=== PATIENT | female | born 1965 | race Caucasian/White ===

== ENCOUNTER 2017-09-12 00:35 | Emergency (ER) | payer OTHER ==
[~2017-09-12] VITALS: Ht 167.6 cm; Wt 144.7 kg
[~2017-09-12 00:35] MED LIST: BUPR100T8 PO; CLON1TAB3 PO; DICL-201 PO; GLIP10TA3 PO; LISI-461 PO; LPT40 PO; METF-384 PO; NYST100098 TOP; OMEP40CA36 PO; PARO1TAB27 PO; QUET150T PO
[2017-09-12 00:59] VITALS: TEMP 36.8; Ht 167.6 cm; Wt 144.7 kg
[2017-09-12 01:20] VITALS: O2SAT 98
[2017-09-12 01:33] LABS: BASO % 0.3 %; BASO ABS # 0.03 K/uL (0-0.2); EOS % 0.5 %; EOS ABS # 0.06 K/uL (0-0.5); HEMATOCRIT 40.3 % (37-47); HEMOGLOBIN 13.9 g/dL (12.0-16.0); IG# 0.03 K/uL (0.00-0.02); LYMPH % 27.9 %; LYMPH ABS # 3.18 K/uL (1.2-3.4); MEAN CELL VOLUME 86.1 fL (80-100); MEAN CORPUSCULAR HEMOGLOBIN 29.7 pg (25-34); MEAN CORPUSCULAR HGB CONC 34.5 g/dl (32-36); MEAN PLATELET VOLUME 10.4 fL (7.4-10.4); MONO % 5.3 %; NEUT % 65.7 %; NEUT ABS # 7.51 K/uL (1.4-6.5); PLATELET COUNT 290 K/uL (130-400); RED CELL DISTRIBUTION WIDTH CV 14.5 % (11.5-14.5); WHITE BLOOD COUNT 11.41 K/uL (4.8-10.8)
[2017-09-12] MEDS ORDERED: OMEP40CA41 PO (01:49)
[2017-09-12] MEDS ORDERED: QUET1TAB10 PO (01:51)
[2017-09-12 01:54] LABS: BLOOD UREA NITROGEN 13 mg/dl (7-18); CREATININE 1.12 mg/dl (0.60-1.20); GLUCOSE 202 mg/dl (70-99)
[2017-09-12] MEDS ORDERED: ATR25 PO (01:54)
[2017-09-12 01:55] LABS: ALBUMIN 3.8 gm/dl (3.4-5.0); ALT/SGPT 27 U/L (12-78); AST/SGOT 17 U/L (15-37); CALCIUM 9.2 mg/dl (8.5-10.1); CARBON DIOXIDE 28 mmol/L (21-32); POTASSIUM 3.4 mmol/L (3.5-5.1); SODIUM 136 mmol/L (136-145)
[2017-09-12 01:57] LABS: ALKALINE PHOSPHATASE 116 U/L (45-117); TOTAL PROTEIN 8.1 gm/dl (6.4-8.2)
[2017-09-12] MEDS ORDERED: ACETAMINOPHEN 500 MG TAB PO STA (02:24)
[2017-09-12 02:30] VITALS: BP 133/69; PULSE 93; O2SAT 94
--- NOTE | 2017-09-12 05:00 | EMERGENCY ROOM VISIT NOTE ---
History First contact with patient: 01:02 Chief Complaint: CARBON MONOXIDE EXPOSURE Stated Complaint: CO2 CHECK History of Present Illness The patient is a 52 year old female who presents to the Emergency Room with complaints of headache, lightheadedness and slight blurred vision for the past hour who had current monoxide leak at the house. Patient has a coal stove. The detector went off. Far department came and they're advised not to stay in the house until cleared. Patient states that she will be staying with her mother. Patient denies chest pain, dyspnea, nausea, vomiting, abdominal pain, weakness. Review of Systems See HPI for pertinent positives & negatives. A total of 10 systems reviewed and were otherwise negative. Past Medical/Surgical History Medical Problems: (1) Anxiety (2) Bipolar 1 disorder (3) Depression (4) DM2 (diabetes mellitus, type 2) (5) Morbid obesity with BMI of 50.0-59.9, adult (6) Tobacco abuse Surgical Problems: (1) H/O dilation and curettage (2) H/O esophagogastroduodenoscopy (3) History of carpal tunnel surgery (4) S/P cholecystectomy Family History FH: cancer FHx: heart disease Hypertension Social History Smoking Status: Current Every Day Smoker Drug Use: none Marital Status: Housing Status: lives with family Occupation Status: unemployed Current/Historical Medications Scheduled Atorvastatin (Lipitor), 40 MG PO QAM Bupropion (Wellbutrin Sr), 100 MG PO QAM Glipizide (Glucotrol), 10 MG PO BID Lisinopril (Zestril), 10 MG PO QAM Metformin Hcl (Glucophage), 1,000 MG PO BID Omeprazole (Prilosec), 40 MG PO DAILY Paroxetine (Paxil), 60 MG PO HS Quetiapine Fumarate (Seroquel), 200 MG PO HS Scheduled PRN Clonazepam (Klonopin), 0.5 MG PO DAILY PRN for Anxiety Hydroxyzine HCl (Hydroxyzine HCl), 25 MG PO BID PRN for Anxiety Nystatin (Mycostatin), 1 APPLN TOP BID PRN for RASH Physical Exam Vital Signs Date Time Temp Pulse Resp B/P (MAP) Pulse Ox O2 Delivery O2 Flow Rate FiO2 09/12/17 02:30 93 16 133/69 94 09/12/17 01:20 98 Nasal Cannula 2.0 09/12/17 00:59 36.8 97 22 147/89 96 Room Air 09/12/17 00:59 96 Room Air Physical Exam VITALS: Vitals are noted on the nurse's note and reviewed by myself. Vital signs stable. GENERAL: Pleasant female in no acute distress, nondiaphoretic, well-developed well-nourished. SKIN: The skin was without rashes, erythema, edema, or bruising. There is no tenting of the skin. Capillary reflex less than 2 seconds. HEAD: Normocephalic atraumatic. EARS: External auditory canals clear, tympanic membranes pearly smith without erythema or effusion bilaterally. EYES: Pupils equal round and reactive to light and accommodation. Conjunctivae without injection, sclerae without icterus. Extraocular movements intact. NOSE: Patent, turbinates without inflammation or discharge. MOUTH: Mucous membranes moist. Pharynx without erythema or exudate. Uvula midline. Airway patent. Tongue does not deviate. NECK: Supple without nuchal rigidity. No lymphadenopathy. No thyromegaly. Cervical spine is nontender. No JVD. HEART: Regular rate and rhythm without murmurs gallops or rubs. LUNGS: Clear to auscultation bilaterally without wheezes, rales or rhonchi. No dullness to percussion. No retractions or accessory muscle use. ABDOMEN: Positive bowel sounds x 4. Normal tympanic percussion. Soft, nontender, without masses or organomegaly. Angel sign negative. No guarding or rebound tenderness. MUSCULOSKELETAL: No muscle atrophy, erythema, or edema noted. NEURO: Patient was alert and oriented to person place and time. Normal sensation to light and sharp touch. No focal neurological deficits. Medical Decision & Procedures Laboratory Results 09/12/17 01:25 Red Blood Count 4.68, Mean Corpuscular Volume 86.1, Mean Corpuscular Hemoglobin 29.7, Mean Corpuscular Hemoglobin Concent 34.5, Mean Platelet Volume 10.4, Neutrophils (%) (Auto) 65.7, Lymphocytes (%) (Auto) 27.9, Monocytes (%) (Auto) 5.3, Eosinophils (%) (Auto) 0.5, Basophils (%) (Auto) 0.3, Neutrophils # (Auto) 7.51, Lymphocytes # (Auto) 3.18, Monocytes # (Auto) 0.60, Eosinophils # (Auto) 0.06, Basophils # (Auto) 0.03 09/12/17 01:25 Test 09/12/17 01:25 White Blood Count 11.41 K/uL (4.8-10.8) Red Blood Count 4.68 M/uL (4.2-5.4) Hemoglobin 13.9 g/dL (12.0-16.0) Hematocrit 40.3 % (37-47) Mean Corpuscular Volume 86.1 fL (80-100) Mean Corpuscular Hemoglobin 29.7 pg (25-34) Mean Corpuscular Hemoglobin Concent 34.5 g/dl (32-36) Platelet Count 290 K/uL (130-400) Mean Platelet Volume 10.4 fL (7.4-10.4) Neutrophils (%) (Auto) 65.7 % Lymphocytes (%) (Auto) 27.9 % Monocytes (%) (Auto) 5.3 % Eosinophils (%) (Auto) 0.5 % Basophils (%) (Auto) 0.3 % Neutrophils # (Auto) 7.51 K/uL (1.4-6.5) Lymphocytes # (Auto) 3.18 K/uL (1.2-3.4) Monocytes # (Auto) 0.60 K/uL (0.11-0.59) Eosinophils # (Auto) 0.06 K/uL (0-0.5) Basophils # (Auto) 0.03 K/uL (0-0.2) RDW Standard Deviation 45.0 fL (36.4-46.3) RDW Coefficient of Variation 14.5 % (11.5-14.5) Immature Granulocyte % (Auto) 0.3 % Immature Granulocyte # (Auto) 0.03 K/uL (0.00-0.02) Carboxyhemoglobin 2.8 % THgb Anion Gap 7.0 mmol/L (3-11) Est Creatinine Clear Calc Drug Dose 86.7 ml/min Estimated GFR () 65.4 Estimated GFR (Non- 56.4 BUN/Creatinine Ratio 11.5 (10-20) Calcium Level 9.2 mg/dl (8.5-10.1) Total Bilirubin 0.2 mg/dl (0.2-1) Direct Bilirubin < 0.1 mg/dl (0-0.2) Aspartate Amino Transf (AST/SGOT) 17 U/L (15-37) Alanine Aminotransferase (ALT/SGPT) 27 U/L (12-78) Alkaline Phosphatase 116 U/L (45-117) Total Protein 8.1 gm/dl (6.4-8.2) Albumin 3.8 gm/dl (3.4-5.0) ED Course Prior records reviewed and summarized as above. Triage Nursing notes reviewed. Additional history obtained from family. The patient's history was concerning for carbon monoxide exposure who is having a headache and lightheadedness. Differential diagnosis: Etiologies such as cardiac monoxide poisoning, electrolyte abnormality, cardiac , glucose abnormality, infection, as well as others were entertained.. Physical examination: As above ER treatment provided: Oxygen On reassessment the patient felt better. Diagnostics interpreted by me: The labs revealed hyperglycemia without DKA. Negative carboxy hemoglobin This appears to be carboxy hemoglobin exposure that was nontoxic. Patient felt much better after being medicated as above. Patient was advised to monitor blood pressure and blood sugar. Patient was advised not to return home until cleared by the fire department. Patient was advised to follow-up family care in a few days or here in the ER sooner for headache, fevers, vomiting, chest pain, worsening signs or symptoms or as needed. Patient was neurovascularly and neurologically intact. Patient was well-appearing. By the evaluation outlined above emergent etiologies such as carbon monoxide poisoning, DKA, as well as others were deemed relatively unlikely. The pt informed about the findings as listed above. All questions were answered and pleased with the treatment. Return instructions were outlined and the patient was discharged in stable condition. Referral: The patient was referred back to primary care physician for follow-up in 2 to 3 days for a recheck of the current condition. Medical Decision As above Medication Reconcilliation Current Medication List: was personally reviewed by me Blood Pressure Screening Patient's blood pressure: Normal blood pressure Impression Primary Impression: Headache Additional Impressions: Diabetes mellitus with hyperglycemia Exposure to carbon monoxide Departure Information Dispostion Home / Self-Care Condition GOOD Forms HOME CARE DOCUMENTATION FORM, IMPORTANT VISIT INFORMATION Patient Instructions Poisoning Carbon Monoxide, [employer] Additional Instructions Do not return to your house until cleared by the fire department. Monitor your blood sugars. Ibuprofen(Motrin, Advil) may be used for fever or pain. Use 600mg every six hours as needed. Take with food. Avoid using more than 2400mg in a 24 hour period. Do not use 2400mg per day for more than three consecutive days without physician direction. Prolonged inappropriate use can lead to stomach upset or ulcers. (AND/OR) Acetaminophen(Tylenol) may be used for fever or pain. Use 1000mg every six hours as needed. Avoid using more than 3000mg in a 24 hour period. Rest and drink plenty of fluids as tolerated. Continue current medications. Return to the ER immediately for worsening or persistent headache, abdominal pain, vomiting, fevers, chest pains, difficulty breathing, worsening of your condition, or as needed. Follow up with your primary physician in 2-3 days for a recheck of your current condition. Problem Qualifiers Primary Impression: Headache Headache type: unspecified Headache chronicity pattern: acute headache Intractability: not intractable Qualified Codes: R51 - Headache
--- NOTE | 2017-09-12 06:43 | EMERGENCY ROOM VISIT NOTE ---
ED Visit Note First contact with patient: 01:02 I have personally evaluated and examined this patient. I agree with assessment and plan of Lizeth Medina PA-C.
== END 2017-09-12 02:29 | disposition home or self-care (01) ==
LOC: C.EDB 00:38
DX: R51 Headache (principal); E11.65 Type 2 diabetes mellitus with hyperglycemia; Z77.29 Contact with and (suspected) exposure to other hazardous substances; F41.9 Anxiety disorder, unspecified; F32.9 Major depressive disorder, single episode, unspecified; F31.9 Bipolar disorder, unspecified; E66.9 Obesity, unspecified; Z82.49 Family history of ischemic heart disease and other diseases of the circulatory system; F17.200 Nicotine dependence, unspecified, uncomplicated

== ENCOUNTER 2021-06-14 20:33 | Inpatient (IN) ==
[2021-06-14] MEDS ORDERED: ONDANSETRON INJ 2 MG/ML 2 ML VIAL IV STA (22:02)
[2021-06-14] MEDS ORDERED: methylPREDNISolone 125 MG/2 ML VIAL IV STA (22:02)
[2021-06-14] MEDS ORDERED: diphenhydrAMINE 50 MG/ML VIAL IV STA (22:02)
[2021-06-14] MEDS ORDERED: FAMOTIDINE 20MG IV PUSH 20 MG/5 ML SYR IV STA (22:02)
--- NOTE | 2021-06-14 22:10 | Emergency Department Note ---
History of Present Illness General Chief complaint: Nausea Stated complaint: ITCHINESS, NAUSEA, DIZZINESS Time Seen by Provider: 06/14/21 21:57 History of Present Illness Maximum Pain Intensity: 4 This is a 55-year-old female presenting to the emergency department for evaluation of itchiness, nausea, and vomiting over the past 2 to 3 days. The patient recently had an increased dose of her gabapentin, which she thought may have been causing her symptoms. She has subsequently stopped the medication, but continues with discomfort. She does not report any new medications or known exposures to disease. No new foods or detergents. The patient was initially taking Benadryl, however with the nausea and vomiting she has not taken anything in over 24 hours. She did go to her primary care physician earlier today who did an outpatient Covid swab which is pending. The patient has not had fevers or chills. No chest pain, chest tightness, shortness of breath. She does not have any throat pain or throat swelling. No history of anaphylaxis. She rates her current discomfort a 4/10. Home Medications Medication Instructions Recorded Confirmed Type atorvastatin 40 mg tablet 40 mg PO HS 07/06/18 06/14/21 History bupropion HCl 100 mg tablet,12 hr 100 mg PO QAM 07/06/18 06/14/21 History sustained-release lisinopril 10 mg tablet 10 mg PO HS 07/06/18 06/14/21 History metformin 500 mg tablet 1,000 mg PO BIDM 07/06/18 06/14/21 History nystatin 100,000 unit/gram topical 1 applic TOPICAL BID PRN 07/06/18 06/14/21 History powder omeprazole 40 mg capsule,delayed 40 mg PO QAM 07/06/18 06/14/21 History release paroxetine HCl 30 mg tablet (Paxil) 60 mg PO HS 07/06/18 06/14/21 History quetiapine 100 mg tablet (Seroquel) 200 mg PO HS 07/06/18 06/14/21 History lorazepam 1 mg tablet 1 mg PO DAILY PRN 06/03/20 06/14/21 History diclofenac sodium 50 mg 50 mg PO BID 06/14/21 06/14/21 History tablet,delayed release famotidine 20 mg tablet 20 mg PO BID 06/14/21 06/14/21 History semaglutide (Ozempic) 0.25 mg SUBCUT WK 06/14/21 06/14/21 History Allergies Allergy/AdvReac Type Severity Reaction Status Date / Time morphine AdvReac Unknown Neuro Verified 06/14/21 22:21 changes-becomes angry Past Med/Surg History Medical History (Updated 06/15/21 @ 08:25 by Eris Keller PA-C) Anxiety Bipolar disorder Chronic back pain Depression Diabetes mellitus, type 2 GERD (gastroesophageal reflux disease) Hyperlipidemia Hypertension Osteoarthritis Surgical History History of carpal tunnel release bilt hands History of cholecystectomy History of colonoscopy History of dilatation and curettage History of elbow surgery bilt ulnar nerve release History of left breast biopsy benign Family History Mother Family history of diabetes mellitus Social History Smoking Status: Never smoker Tobacco Type: Cigarettes Cigarettes Per Day: 12 a day; Second Hand Exposure: Yes (both parents smoked); Hx Alcohol Use: Yes Alcohol type: wine Hx Substance Use: No Preferred Language: Icelandic Communication Ability: Effective Intervention Analyst Required: No Beliefs That Will Affect Care: None Current Living Situation: Spouse Feels Safe at Home: Yes Assistive Devices: Glasses Review of Systems A total of 10 systems reviewed and were otherwise negative Physical Exam Vital Signs Vital Signs - 24 hr 06/14/21 20:34 06/14/21 22:27 06/14/21 22:30 Temperature 36.6 C Temperature Source Temporal Artery Scan Pulse Rate 83 82 75 Pulse Rate from SpO2 Sensor 75 75 Respiratory Rate 16 22 18 Respiratory Depth Normal Blood Pressure 125/80 123/73 Blood Pressure Mean 95 89 Blood Pressure Position Sitting Pulse Oximetry 95 92 94 Oxygen Delivery Method Room Air Sepsis Recent Fever Within 48 Hours No Sepsis New/Unexplained Change in Mental Status No Sepsis Action Taken by Nursing No Action Required 06/14/21 23:00 06/15/21 00:30 06/15/21 01:45 Temperature Temperature Source Pulse Rate 65 71 135 H Pulse Rate from SpO2 Sensor 78 73 Respiratory Rate 16 19 36 H Respiratory Depth Blood Pressure 125/70 108/62 Blood Pressure Mean 88 77 Blood Pressure Position Pulse Oximetry 93 92 Oxygen Delivery Method Room Air Room Air Sepsis Recent Fever Within 48 Hours Sepsis New/Unexplained Change in Mental Status Sepsis Action Taken by Nursing 06/15/21 02:00 06/15/21 02:30 Temperature Temperature Source Pulse Rate 76 74 Pulse Rate from SpO2 Sensor 75 75 Respiratory Rate 21 15 Respiratory Depth Blood Pressure Blood Pressure Mean Blood Pressure Position Pulse Oximetry 95 93 Oxygen Delivery Method Sepsis Recent Fever Within 48 Hours Sepsis New/Unexplained Change in Mental Status Sepsis Action Taken by Nursing VITALS: Vitals are noted on the nurse's note and reviewed by myself. Vital signs stable. GENERAL: Well-developed, well-nourished, white female, who is in no acute distress and resting comfortably. Patient is cooperative with the examination. HEAD: Normocephalic atraumatic. HEART: Regular rate and rhythm without murmurs gallops or rubs. LUNGS: Clear to auscultation bilaterally without wheezes, rales or rhonchi. No retractions or accessory muscle use. ABDOMEN: Positive normal bowel sounds x 4. Soft, nontender, without masses or organomegaly. No guarding or rebound tenderness. MUSCULOSKELETAL: No muscle atrophy, erythema, or edema noted. Full range of motion in all extremities. NEURO: Patient was alert and oriented to person place and time. CN II through XII grossly intact. No focal neurological deficits. Deep tendon reflexes 2+ throughout. SKIN: The skin was with scattered nonspecific urticaria Course Administered Medications Sodium Chloride (Nss 1000ml) 1,000 mls @ 125 mls/hr IV .Q8H SOTO Stop: 07/15/21 03:07 Last Admin: 06/15/21 03:29 Dose: 125 mls/hr Documented by: [id number] Discontinued Medications Diphenhydramine HCl (Diphenhydramine 50 Mg/Ml Vial) 50 mg IV NOW STA Stop: 06/14/21 22:03 Last Admin: 06/14/21 22:27 Dose: 50 mg Documented by: [id number] Sodium Chloride (Nss 1000ml) 1,000 mls @ 999 mls/hr IV .Q1H1M SOTO Stop: 06/14/21 23:15 Last Infusion: 06/14/21 23:00 Dose: 0 mls/hr Documented by: [id number] Admin: 06/14/21 22:28 Dose: 999 mls/hr Documented by: [id number] Famotidine (Pepcid 20mg Iv Push) 20 mg in 5 mls @ 2.5 mls/min IV NOW STA Stop: 06/14/21 22:03 Last Admin: 06/14/21 22:30 Dose: 2.5 mls/min Documented by: [id number] Sodium Chloride (Nss 1000ml) 1,000 mls @ 999 mls/hr IV .Q1H1M SOTO Stop: 06/15/21 00:30 Last Infusion: 06/15/21 00:06 Dose: 0 mls/hr Documented by: [id number] Admin: 06/14/21 23:26 Dose: 999 mls/hr Documented by: [id number] Methylprednisolone (Methylprednisolone 125 Mg/2 Ml Vial) 125 mg IV NOW STA Stop: 06/14/21 22:03 Last Admin: 06/14/21 22:28 Dose: 125 mg Documented by: [id number] Ondansetron HCl (Ondansetron Inj 2 Mg/Ml 2 Ml Vial) 4 mg IV NOW STA Stop: 06/14/21 22:03 Last Admin: 06/14/21 22:26 Dose: 4 mg Documented by: [id number] Ondansetron HCl (Ondansetron Inj 2 Mg/Ml 2 Ml Vial) 4 mg IV NOW STA Stop: 06/15/21 00:03 Last Admin: 06/15/21 00:08 Dose: 4 mg Documented by: [id number] Medical Decision Making Differential Diagnosis Differential diagnosis: Etiologies such as allergic reaction, anaphylaxis, urticaria, angioedema, Figueroa-Adam syndrome, toxic epidermal necrolysis, erythema multiforme, cellulitis, as well as others were entertained. Laboratory Data Result diagrams: 06/15/21 05:09 06/15/21 05:09 Lab Results 06/14/21 06/14/21 06/14/21 Range/Units 22:15 22:15 22:15 WBC 7.03 (4.8-10.8) K/uL RBC 4.35 (4.2-5.4) M/uL Hgb 13.0 (12.0-16.0) g/dL Hct 38.5 (37-47) % MCV 88.5 (80-100) fL MCH 29.9 (25-34) pg MCHC 33.8 (32-36) g/dL RDW Std Deviation 46.0 (36.4-46.3) fL RDW Coeff of Khloe 14.1 (11.5-14.5) % Plt Count 298 (130-400) K/uL MPV 10.6 H (7.4-10.4) fL Immature Gran % (Auto) 0.1 % Neut % (Auto) 71.8 % Lymph % (Auto) 19.6 % [place] % (Auto) 6.8 % Eos % (Auto) 1.6 % Baso % (Auto) 0.1 % Neut # (Auto) 5.04 (1.4-6.5) K/uL Lymph # (Auto) 1.38 (1.2-3.4) K/uL [place] # (Auto) 0.48 (0.11-0.59) K/uL Eos # (Auto) 0.11 (0-0.5) K/uL Baso # (Auto) 0.01 (0-0.2) K/uL Immature Gran # (Auto) 0.01 (0.00-0.02) K/uL Sodium 138 (136-145) mmol/L Potassium 4.3 (3.5-5.1) mmol/L Chloride 106 (98-107) mmol/L Carbon Dioxide 27 (21-32) mmol/L Anion Gap 5.0 (3-11) BUN 29 H (7-18) mg/dl Creatinine 2.35 H (0.6-1.2) mg/dl Est Cr Clr Drug Dosing 37.1 ml/min Est GFR ( Amer) 26.1 ml/min Est GFR (Non-Af Amer) 22.6 ml/min BUN/Creatinine Ratio 12.3 (10-20) Glucose 137 H (70-99) mg/dl Calcium 9.1 (8.5-10.1) mg/dl Total Bilirubin 1.4 H (0.2-1) mg/dl AST 189 H (15-37) U/L ALT 358 H (12-78) U/L Alkaline Phosphatase 378 H (45-117) U/L Total Protein 8.1 (6.4-8.2) gm/dl Albumin 3.5 (3.4-5.0) gm/dl Globulin 4.6 H (2.5-4.0) gm/dl Albumin/Globulin Ratio 0.8 L (0.9-2) Lipase 380 (73-393) U/L Urine Color Dark Yellow Urine Appearance Clear (Clear) Urine pH 6.0 (4.5-7.5) Ur Specific [place] 1.018 (1.000-1.030) Urine Protein 1+ H (Negative) Urine Glucose (UA) Negative (Negative) Urine Ketones Negative (Negative) Urine Blood Negative (Negative) Urine Nitrite Negative (Negative) Urine Bilirubin 1+ H (Negative) Urine Urobilinogen Negative (Negative) Ur Leukocyte Esterase Trace H (Negative) Urine WBC (Auto) 1-5 (0-5) /hpf Urine RBC (Auto) 0-4 (0-4) /hpf U Hyaline Cast (Auto) 1-5 (0-5) /lpf U Epithel Cells (Auto) 10-20 H (0-5) /lpf Urine Bacteria (Auto) Negative (Negative) COVID-19 Eval Order SARS-CoV-2 (PCR) (Negative) Hep Bs Antigen (Neg) Hepatitis C Antibody (Neg) Monoscreen (Negative) 06/14/21 06/14/21 06/15/21 Range/Units 23:39 23:39 01:21 WBC (4.8-10.8) K/uL RBC (4.2-5.4) M/uL Hgb (12.0-16.0) g/dL Hct (37-47) % MCV (80-100) fL MCH (25-34) pg MCHC (32-36) g/dL RDW Std Deviation (36.4-46.3) fL RDW Coeff of Khloe (11.5-14.5) % Plt Count (130-400) K/uL MPV (7.4-10.4) fL Immature Gran % (Auto) % Neut % (Auto) % Lymph % (Auto) % [place] % (Auto) % Eos % (Auto) % Baso % (Auto) % Neut # (Auto) (1.4-6.5) K/uL Lymph # (Auto) (1.2-3.4) K/uL [place] # (Auto) (0.11-0.59) K/uL Eos # (Auto) (0-0.5) K/uL Baso # (Auto) (0-0.2) K/uL Immature Gran # (Auto) (0.00-0.02) K/uL Sodium (136-145) mmol/L Potassium (3.5-5.1) mmol/L Chloride (98-107) mmol/L Carbon Dioxide (21-32) mmol/L Anion Gap (3-11) BUN (7-18) mg/dl Creatinine (0.6-1.2) mg/dl Est Cr Clr Drug Dosing ml/min Est GFR ( Amer) ml/min Est GFR (Non-Af Amer) ml/min BUN/Creatinine Ratio (10-20) Glucose (70-99) mg/dl Calcium (8.5-10.1) mg/dl Total Bilirubin (0.2-1) mg/dl AST (15-37) U/L ALT (12-78) U/L Alkaline Phosphatase (45-117) U/L Total Protein (6.4-8.2) gm/dl Albumin (3.4-5.0) gm/dl Globulin (2.5-4.0) gm/dl Albumin/Globulin Ratio (0.9-2) Lipase (73-393) U/L Urine Color Urine Appearance (Clear) Urine pH (4.5-7.5) Ur Specific [place] (1.000-1.030) Urine Protein (Negative) Urine Glucose (UA) (Negative) Urine Ketones (Negative) Urine Blood (Negative) Urine Nitrite (Negative) Urine Bilirubin (Negative) Urine Urobilinogen (Negative) Ur Leukocyte Esterase (Negative) Urine WBC (Auto) (0-5) /hpf Urine RBC (Auto) (0-4) /hpf U Hyaline Cast (Auto) (0-5) /lpf U Epithel Cells (Auto) (0-5) /lpf Urine Bacteria (Auto) (Negative) COVID-19 Eval Order Covid19 at [facility] SARS-CoV-2 (PCR) (Negative) Hep Bs Antigen Neg (Neg) Hepatitis C Antibody Neg (Neg) Monoscreen Negative (Negative) 06/15/21 Range/Units 01:21 WBC (4.8-10.8) K/uL RBC (4.2-5.4) M/uL Hgb (12.0-16.0) g/dL Hct (37-47) % MCV (80-100) fL MCH (25-34) pg MCHC (32-36) g/dL RDW Std Deviation (36.4-46.3) fL RDW Coeff of Khloe (11.5-14.5) % Plt Count (130-400) K/uL MPV (7.4-10.4) fL Immature Gran % (Auto) % Neut % (Auto) % Lymph % (Auto) % [place] % (Auto) % Eos % (Auto) % Baso % (Auto) % Neut # (Auto) (1.4-6.5) K/uL Lymph # (Auto) (1.2-3.4) K/uL [place] # (Auto) (0.11-0.59) K/uL Eos # (Auto) (0-0.5) K/uL Baso # (Auto) (0-0.2) K/uL Immature Gran # (Auto) (0.00-0.02) K/uL Sodium (136-145) mmol/L Potassium (3.5-5.1) mmol/L Chloride (98-107) mmol/L Carbon Dioxide (21-32) mmol/L Anion Gap (3-11) BUN (7-18) mg/dl Creatinine (0.6-1.2) mg/dl Est Cr Clr Drug Dosing ml/min Est GFR ( Amer) ml/min Est GFR (Non-Af Amer) ml/min BUN/Creatinine Ratio (10-20) Glucose (70-99) mg/dl Calcium (8.5-10.1) mg/dl Total Bilirubin (0.2-1) mg/dl AST (15-37) U/L ALT (12-78) U/L Alkaline Phosphatase (45-117) U/L Total Protein (6.4-8.2) gm/dl Albumin (3.4-5.0) gm/dl Globulin (2.5-4.0) gm/dl Albumin/Globulin Ratio (0.9-2) Lipase (73-393) U/L Urine Color Urine Appearance (Clear) Urine pH (4.5-7.5) Ur Specific [place] (1.000-1.030) Urine Protein (Negative) Urine Glucose (UA) (Negative) Urine Ketones (Negative) Urine Blood (Negative) Urine Nitrite (Negative) Urine Bilirubin (Negative) Urine Urobilinogen (Negative) Ur Leukocyte Esterase (Negative) Urine WBC (Auto) (0-5) /hpf Urine RBC (Auto) (0-4) /hpf U Hyaline Cast (Auto) (0-5) /lpf U Epithel Cells (Auto) (0-5) /lpf Urine Bacteria (Auto) (Negative) COVID-19 Eval Order SARS-CoV-2 (PCR) NEGATIVE (Negative) Hep Bs Antigen (Neg) Hepatitis C Antibody (Neg) Monoscreen (Negative) Imaging Data Radiologist's Impression: Liver Ultrasound 06/15/21 01:02 US liver HISTORY: 55 years-old Female n/v. Elevated LFT's. No gallbladder acutely elevated LFTs COMPARISON: CT abdomen and pelvis of same day, right upper quadrant abdominal ultrasound 11/30/2011 TECHNIQUE: Multiple real-time sonographic images of the abdominal right upper quadrant were obtained assessing grayscale appearance and color flow FINDINGS: Hepatic steatosis. No hepatic mass lesion or marginal nodularity identified. Cholecystectomy. The imaged right kidney is unremarkable without hydronephrosis. The visualized pancreas appears within normal limits. The common bile duct is mildly dilated at 8 mm. IMPRESSION: 1. Cholecystectomy. 2. Mild dilation of the common bile duct is likely on a postsurgical basis. 3. Hepatic steatosis. ACT 112: Negative or not required by law. The above report was generated using voice recognition software. It may contain grammatical, syntax or spelling errors. Electronically signed by: Erik Wahl M.D. 06/15/2021 7:56 AM MDM Narrative Physical exam and history were performed. Nursing notes, EMR, and Medication List were personally reviewed. Patient appears to have itchiness and rash bringing her to the emergency department. She is with associated nausea and vomiting that is making it difficult for her to take any medication at home. IV access was established and labs were obtained. The patient was hydrated with normal saline and given IV Solu-Medrol, IV Benadryl, IV Pepcid, and IV Zofran. Incidentally she is reporting some discoloration of her urine, which may be from dehydration, regardless urine was sent to the lab for evaluation. The patient's blood work is as above and was reviewed. She does not have a significantly elevated white blood cell count or gross anemia. Potassium is 5.6. Creatinine is 2.35. Lipase is not diagnostic. LFTs are elevated with an AST of 156, ALT of 319, and alk phos of 355. Urine is without gross evidence of infection. Covid was performed and negative. [place] is negative. Hepatitis panel is pending. CT scan and ultrasound of the belly were performed to better determine the reason for her elevated LFTs and creatinine. Imaging studies were reviewed by myself and radiology showing no acute process. I was able to review [facility] records from the patient, and she did have essentially normal blood work about 2 months ago. Specifically she had a normal potassium, normal LFTs, and normal kidney panel. Her findings today appear new and acute. Some of these could be from the nausea and vomiting, however other illnesses not excluded. I discussed options of care with the family, and overall she does not seem well for discharge home. The case was discussed with the on-call hospitalist who will evaluate the patient. Please see their dictat ion for further patient course, plan, and disposition. The chart was completed utilizing [employer] Voice Recognition Software. Grammatical errors, random word insertions, pronoun errors, and incomplete sentences are an occasional consequence of this system due to software limitations, ambient noise, and hardware issues. Any formal questions or concerns about the content, text, or information contained within the body of this dictation should be directly addressed to the provider for clarification. . Impression & Plan CHERISE (acute kidney injury), Elevated LFTs, Itching, Nausea and vomiting Discharge Plan Visit Data Chief Complaint: Nausea Stated Complaint: ITCHINESS, NAUSEA, DIZZINESS ED Provider: Juan Valadez ED Midlevel Provider: Eris Keller Discharge Problem: CHERISE (acute kidney injury), Elevated LFTs, Itching, Nausea and vomiting Patient Disposition: Admitted As Inpatient Discharge Instructions Interventions: ED Discharge Assessment Last Done: 06/15/21 03:06
[2021-06-14] MEDS ORDERED: SODIUM CHLORIDE 0.9% 1000ML 1,000 ML IV SCH ×2 (22:15→23:30)
[2021-06-14 22:30] LABS: Basophils # (auto) 0.01 K/uL (0-0.2); Basophils % (auto) 0.1 %; Eosinophils # (auto) 0.11 K/uL (0-0.5); Eosinophils % (auto) 1.6 %; Hematocrit (blood only) 38.5 % (37-47); Immature Granulocytes # (auto) 0.01 K/uL (0.00-0.02); Immature Granulocytes % (auto) 0.1 %; Lymphocytes # (auto) 1.38 K/uL (1.2-3.4); Lymphocytes % (auto) 19.6 %; Mean Corpuscular Hemoglobin 29.9 pg (25-34); Mean Corpuscular Hgb Conc 33.8 g/dL (32-36); Mean Corpuscular Volume 88.5 fL (80-100); Mean Platelet Volume 10.6 fL (7.4-10.4); Monocytes # (auto) 0.48 K/uL (0.11-0.59); Monocytes % (auto) 6.8 %; Neutrophils # (auto) 5.04 K/uL (1.4-6.5); Neutrophils % (auto) 71.8 %; Platelet Count 298 K/uL (130-400); RDW Coefficient of Variation 14.1 % (11.5-14.5); Red Blood Count 4.35 M/uL (4.2-5.4); White Blood Count 7.03 K/uL (4.8-10.8)
[2021-06-14 22:42] LABS: Appearance Urine Clear (Clear); Bacteria Urine Automated Negative (Negative); Bilirubin Urine 1+ (Negative); Blood Urine Negative (Negative); Color Urine Dark Yellow; Glucose Urine UA Negative (Negative); Ketones Urine Negative (Negative); Leukocyte Esterase Urine Trace (Negative); Nitrite Urine Negative (Negative); Protein Urine 1+ (Negative); RBC Urine Automated 0-4 /hpf (0-4); Specific Gravity Urine 1.018 (1.000-1.030); Urobilinogen Urine Negative (Negative)
[2021-06-14 22:47] LABS: Albumin Level 3.5 gm/dl (3.4-5.0); BUN Creatinine Ratio 12.3 (10-20); Calcium 9.1 mg/dl (8.5-10.1); Creatinine Clr Calc Pharmacy 37.1 ml/min; Est GFR (African American) 26.1 ml/min; Est GFR (Non-African American) 22.6 ml/min; Potassium 4.3 mmol/L (3.5-5.1)
[2021-06-14 22:50] LABS: Albumin Globulin Ratio 0.8 (0.9-2); Bilirubin,Total 1.4 mg/dl (0.2-1); Globulin 4.6 gm/dl (2.5-4.0); Total Protein 8.1 gm/dl (6.4-8.2)
[2021-06-15] MEDS ORDERED: ONDANSETRON INJ 2 MG/ML 2 ML VIAL IV STA (00:02)
[2021-06-15 00:42] LABS: Hepatitis B Surf Ag Rflx Conf Neg (Neg)
[2021-06-15 01:11] LABS: Hepatitis C IgG 13Yrs+Old_Rflx Neg (Neg)
[2021-06-15] MEDS ORDERED: NYSTATIN POWDER 15GM BTL EXT PRN (03:08)
[2021-06-15] MEDS ORDERED: ONDANSETRON INJ 2 MG/ML 2 ML VIAL IV PRN (03:08)
[2021-06-15] MEDS ORDERED: NITROGLYCERIN SL 0.4 MG/TAB TAB SL PRN (03:08)
[2021-06-15] MEDS ORDERED: LORazepam 1 MG TAB PO PRN (03:22)
[2021-06-15] MEDS: SODIUM CHLORIDE 0.9% 1000ML 1,000 ML IV SCH ×3 (03:29→20:11)
[2021-06-15] MEDS ORDERED: GLUCOSE 10 TABS/TUBE PO PRN (03:30)
[2021-06-15] MEDS ORDERED: DEXTROSE 50% 50 ML SYRINGE IV PRN (03:30)
[2021-06-15] MEDS ORDERED: CARBOHYDRATES FOR HYPOGLYCEMIA PO PRN (03:30)
[2021-06-15] MEDS ORDERED: GLUCAGON FOR INJ 1 MG VIAL IM PRN (03:30)
[2021-06-15] MEDS ORDERED: GLUCOSE 40% GEL 15 GM TUBE PO PRN (03:30)
--- NOTE | 2021-06-15 04:32 | History and Physical Report ---
DATE OF ADMISSION: 06/15/2021. CHIEF COMPLAINT: Itchiness, nausea, rash. HISTORY OF PRESENT ILLNESS: This is a 55-year-old female with past medical history significant for chronic back pain, bipolar I disorder, depression, diabetes type 2, GERD, hypotension, morbid obesity, anxiety, tobacco use disorder, presents with ongoing itchiness from last Friday and she has some macular rash on the face. Today, she noticed possible swelling in the hands. She tried to use Benadryl, but over the last couple of days, she has lot of nausea and vomiting. She was not able to take anything p.o. and as she was not getting better, she came to the hospital. She states she was taking only the new medication was gabapentin. She is taking 1 daily for almost 1-2 months then recently it was increased to 3 times daily but when the itching started, she stopped the gabapentin, the itching was also on the palms. Denies any fevers. No cough, no chest pain, no shortness of breath, no headaches, blurred vision, no earache, no runny nose, has dry throat. No abdominal pain. Somewhat constipated. The urine looks yellow today. No swelling in the legs. Currently, hemodynamically stable but labs shows creatinine of 2.35, total bilirubin 1.4, AST, ALT, alkaline phosphatase are mildly elevated. ALLERGIES: MORPHINE. PAST MEDICAL HISTORY: As mentioned above. PAST SURGICAL HISTORY: Carpal tunnel surgery, colonoscopy, D and C, EGD with biopsy, lumbosacral spine steroid injections, laparoscopic cholecystectomy, puncture of breast cyst. MEDICATIONS: The patient is on atorvastatin 40 mg p.o. at bedtime, bupropion 100 mg p.o. a.m., diclofenac sodium 50 mg p.o. b.i.d., famotidine 20 mg p.o. b.i.d., lisinopril 10 mg p.o. at bedtime, lorazepam 1 mg p.o. daily p.r.n., metformin 1000 mg p.o. b.i.d., nystatin 1 topical b.i.d., omeprazole 40 mg p.m., Elavil 60 mg p.o. at bedtime, Seroquel 200 mg p.o. at bedtime, Ozempic 0.5 mg subcutaneous weekly. FAMILY HISTORY: Significant for mother has mitral valve prolapse, CAD, angioplasty, hypertension. Father has hypertension, prostate cancer. Aunt has breast cancer. Sister has hypertension. SOCIAL HISTORY: , smokes cigarettes 1 pack a day. Alcohol social drinker. REVIEW OF SYSTEMS: As per HPI. Rest of the review of systems is negative. PHYSICAL EXAMINATION: GENERAL: The patient is morbidly obese, not in acute distress. VITAL SIGNS: Temperature 36.6, pulse 71, respiratory rate 19, blood pressure 109/62, oxygen 92% on room air. HEENT: Pupils equal, round and reactive to light. Oral mucosa moist. NECK: No JVD, no neck masses. CARDIOVASCULAR: S1 and S2 heard. Regular rate and rhythm. No murmur, no gallop. RESPIRATORY SYSTEM: Normal AP diameter. No accessory muscle use. No wheezing, no crackles. ABDOMEN: Soft, bowel sounds present, nontender, no distention. CENTRAL NERVOUS SYSTEM: Cranial nerves II-XII grossly intact, nonfocal. EXTREMITIES: No edema, no erythema. LABORATORY DATA: WBC 7, hemoglobin 13, hematocrit 38.5, platelets 298. Sodium 138, potassium 4.3, chloride 106, bicarb 27, BUN 29, creatinine 2.35, serum glucose 137, calcium 9.1, total bilirubin 1.4, AST 156, ALT 358, alkaline phosphatase 378. Lipase 380. Urinalysis, +1 bilirubin, +1 protein, trace leukocyte esterase. SARS-CoV-2 PCR negative. Hepatitis C antibody negative. Cook screen negative. Hepatitis B surface antigen negative. IMAGING DATA: CT of abdomen and pelvis preliminary report, no acute findings. Liver ultrasound cholecystectomy, CBD 8.5 mm, likely related to post- cholecystectomy status. Hepatic steatosis. No hydronephrosis in right kidney. ASSESSMENT AND PLAN: A 55-year-old female who presents with persistent pruritus, nausea and found to have acute kidney injury and elevated LFTs. 1. Pruritus, etiology unclear. The patient was not able to take po Benadryl because of nausea, also not helping much, She says she could not sleep because of itchiness all over the body, and has some rash on her face seen.Could be delayed hypersensitivity reaction from recent use of gabapentin, could be DRESS syndrome with involvement of the acute kidney injury and elevated LFTs, Though no eosinophilia on blood work.. Imaging studies were unremarkable. Liver ultrasound and CT of the abdomen and pelvis were unremarkable. Viral hepatitis is negative though hepatitis A, IgM is pending. We will also check for CMV and herpes virus. ER gave 125 of methylprednisone, we will place her on triamcinolone topical and also IV prednisone and consult Dermatology in a.m. 2. Increased LFTs. Ultrasound and CT scan are unremarkable. We will consult GI in the a.m. for further recommendations. 3. Acute kidney injury. Hold diclofenac sodium, metformin and lisinopril. Place on fluids. We will follow the repeat labs in a.m. 4. Gastroesophageal reflux disease. Continue omeprazole. 5. Depression and bipolar I disorder . Continue paroxetine and Seroquel and bupropion. 6. Diabetes. Hold metformin and semaglutide. Placed on insulin sliding scale. Follow blood sugars while she is on steroids. 7. Hyperlipidemia on statin. . 8. Hypertension. Holding lisinopril for acute kidney injury. We will monitor the blood pressure. 9. Morbid obesity: Needs counseling. 10. tobacco abuse . needs counselling. On bupropion 11. Deep venous thrombosis prophylaxis: Lovenox. DISPOSITION: Closely monitor in the med-tele. PT/OT prior to discharge. Social service to help with discharge planning. Job ID: [id number] [facility]
[2021-06-15 05:21] LABS: Basophils # (auto) 0.01 K/uL (0-0.2); Basophils % (auto) 0.2 %; Hematocrit (blood only) 36.3 % (37-47); Hemoglobin 12.1 g/dL (12.0-16.0); Immature Granulocytes # (auto) 0.03 K/uL (0.00-0.02); Immature Granulocytes % (auto) 0.5 %; Lymphocytes # (auto) 0.68 K/uL (1.2-3.4); Lymphocytes % (auto) 10.4 %; Mean Corpuscular Hemoglobin 29.4 pg (25-34); Mean Corpuscular Hgb Conc 33.3 g/dL (32-36); Mean Corpuscular Volume 88.3 fL (80-100); Mean Platelet Volume 10.3 fL (7.4-10.4); Monocytes # (auto) 0.07 K/uL (0.11-0.59); Monocytes % (auto) 1.1 %; Neutrophils # (auto) 5.75 K/uL (1.4-6.5); Neutrophils % (auto) 87.8 %; Platelet Count 268 K/uL (130-400); RDW Coefficient of Variation 14.2 % (11.5-14.5); RDW Standard Deviation 46.3 fL (36.4-46.3); Red Blood Count 4.11 M/uL (4.2-5.4); White Blood Count 6.54 K/uL (4.8-10.8)
[2021-06-15 05:50] LABS: Albumin Level 3.2 gm/dl (3.4-5.0); BUN Creatinine Ratio 13.5 (10-20); Bilirubin Direct 0.6 mg/dl (0-0.2); Bilirubin,Total 0.9 mg/dl (0.2-1); Calcium 8.2 mg/dl (8.5-10.1); Creatinine Clr Calc Pharmacy 49.3 ml/min; Est GFR (African American) 36.8 ml/min; Est GFR (Non-African American) 31.8 ml/min; Magnesium 1.9 mg/dl (1.8-2.4); Potassium 5.6 mmol/L (3.5-5.1); Total Protein 7.4 gm/dl (6.4-8.2)
[2021-06-15 07:44] LABS: Estimated Average Glucose 166 mg/dl; Hemoglobin A1C 7.4 % (4.5-5.6)
--- NOTE | 2021-06-15 07:57 | Ultrasound Report ---
US liver HISTORY: 55 years-old Female n/v. Elevated LFT's. No gallbladder acutely elevated LFTs COMPARISON: CT abdomen and pelvis of same day, right upper quadrant abdominal ultrasound 11/30/2011 TECHNIQUE: Multiple real-time sonographic images of the abdominal right upper quadrant were obtained assessing grayscale appearance and color flow FINDINGS: Hepatic steatosis. No hepatic mass lesion or marginal nodularity identified. Cholecystectomy. The macy ged right kidney is unremarkable without hydronephrosis. The visualized pancreas appears within fatoumata l limits. The common bile duct is mildly dilated at 8 mm. IMPRESSION: 1. Cholecystectomy. 2. Mild dilation of the common bile duct is likely on a postsurgical basis. 3. Hepatic steatosis. ACT 112: Negative or not required by law. The above report was generated using voice recognition software. It may contain grammatical, syntax o r spelling errors. Electronically signed by: Erik Wahl M.D. 06/15/2021 7:56 AM
[2021-06-15] MEDS ORDERED: SODIUM POLYSTYRENE SULFONATE 15G/60ML SUSP PO STA (08:26)
[2021-06-15] MEDS: ENOXAPARIN INJ 40 MG/0.4 ML SYR SQ SCH ×2 (08:47→21:41)
[2021-06-15] MEDS: buPROPion SR 100 MG TABCR PO SCH (08:48)
[2021-06-15] MEDS: TRIAMCINOLONE ACET 0.5% CR 15 GM TUBE EXT SCH ×2 (08:48→21:41)
[2021-06-15] MEDS: FAMOTIDINE 20 MG TAB PO SCH ×2 (08:48→21:38)
[2021-06-15] MEDS: PANTOprazole 40 MG TAB PO SCH (08:49)
[2021-06-15] MEDS: methylPREDNISolone 60 MG in SYRINGE 0 ML IV SCH (08:49)
[2021-06-15] MEDS: INSULIN ASPART 100 UNITS/ML 3 ML PEN SC SCH ×4 (08:50→21:38)
--- NOTE | 2021-06-15 08:58 | Gastrointestinal Consultation ---
Date of Consultation June 15, 2021 Assessment & Plan (1) Elevated LFTs: 55 year old female admitted w/ edema, pruritus, nausea/vomiting GI asked to evaluate for elevated LFTs w/ tbili 1.4, ast 156, alt 319, alkp 355, lipase WNL. ABD US s/p ccy and 8 mm CBD NPO EGD/EUS today +/- ERCP if needed Antiemetics PRN Analgesia PRN Thank you for allowing us to participate in the care of this patient. Please call with any acute changes, questions or concerns. Please see addendum below with additional recommendation from my supervising physician. Supervising Physician Co-Signing Physician Notes I performed a history and physical examination of the patient today, including specifically on physical exam - soft abdomen. I have discussed the patient's management with the advanced practitioner. Please refer to the nurse practitioner's note for the documented findings and plan of care. EUS/ERCP today Patient was explained in detail regarding risks, benefits, limitations and alternatives of the above endoscopic procedure. Risks of intravenous sedation used for procedure were also explained. Risks include, but not limited to perforation, bleeding, infection, respiratory distress, cardiac arrest and . Patient is also aware about the possibility of missed lesion. Patient's questions were answered. The patient verbalized understanding the information and agreed to undergo the procedure. History of Present Illness Reason for Consultation: elevated LFTs Requesting Physician: Paco Attending Physician: Marcus Antonio MD History of Present Illness 55 year old female with history of chronic back pain, bipolar I disorder, depression, diabetes type 2, GERD, hypotension, morbid obesity, anxiety, tobacco use disorder, presents with ongoing itchiness from last Friday, rash on the face, edema of extremities and nausea. Pt was seen and evaluated, chart reviewed. Notes the majority of her symptoms started about 1-2 weeks ago. 3/4 days ago symptoms started to worsen and she developed severe nausea, vomiting. No black or bloody emesis. No change in BMs. GI asked to eval for elevated LFTs ABD US 2020: s/p ccy, cbd dilation CTAP 2020: pending Allergies Allergy/AdvReac Type Severity Reaction Status Date / Time morphine AdvReac Unknown Neuro Verified 06/14/21 22:21 changes-becomes angry Home Medications Medication Instructions Recorded Confirmed Type atorvastatin 40 mg tablet 40 mg PO HS 07/06/18 06/14/21 History bupropion HCl 100 mg tablet,12 hr 100 mg PO QAM 07/06/18 06/14/21 History sustained-release lisinopril 10 mg tablet 10 mg PO HS 07/06/18 06/14/21 History metformin 500 mg tablet 1,000 mg PO BIDM 07/06/18 06/14/21 History nystatin 100,000 unit/gram topical 1 applic TOPICAL BID PRN 07/06/18 06/14/21 History powder omeprazole 40 mg capsule,delayed 40 mg PO QAM 07/06/18 06/14/21 History release paroxetine HCl 30 mg tablet (Paxil) 60 mg PO HS 07/06/18 06/14/21 History quetiapine 100 mg tablet (Seroquel) 200 mg PO HS 07/06/18 06/14/21 History lorazepam 1 mg tablet 1 mg PO DAILY PRN 06/03/20 06/14/21 History diclofenac sodium 50 mg 50 mg PO BID 06/14/21 06/14/21 History tablet,delayed release famotidine 20 mg tablet 20 mg PO BID 06/14/21 06/14/21 History semaglutide (Ozempic) 0.25 mg SUBCUT WK 06/14/21 06/14/21 History Patient History Medical History (Updated 06/15/21 @ 11:07 by Derick Garcia DO) Anxiety Bipolar disorder Chronic back pain Depression Diabetes mellitus, type 2 GERD (gastroesophageal reflux disease) Hyperlipidemia Hypertension Osteoarthritis Surgical History History of carpal tunnel release bilt hands History of cholecystectomy History of colonoscopy History of dilatation and curettage History of elbow surgery bilt ulnar nerve release History of left breast biopsy benign Family History Mother Family history of diabetes mellitus Social History Smoking Status: Current every day smoker Tobacco Type: Cigarettes Cigarettes Per Day: 12 a day; Second Hand Exposure: Yes (both parents smoked); Hx Alcohol Use: No Hx Substance Use: No Preferred Language: [place] Communication Ability: Effective Ultrasound Applications Specialist Required: No Beliefs That Will Affect Care: Mandaeism Current Living Situation: Spouse Feels Safe at Home: Yes Safety Concerns: Feels Safe At This Time Assistive Devices: Glasses Review of Systems Review of Systems: All systems reviewed & are unremarkable except as noted in HPI & below Physical Exam Constitutional: WD/WN, vitals as above Neck: trachea midline, no thyromegaly Respiratory: normal respiratory effort, lungs clear to auscultation Cardiovascular: Rate/Rhythm: regular rate and regular rhythm Gastrointestinal (Abdomen): normal bowel sounds, soft, nontender, no hepatos plenomegaly Skin: no rashes, warm and dry Results & Data ([facility]) Vital Signs (Past 12 Hours) Vital Signs Pulse Pulse Resp BP BP Pulse Ox 06/15/21 08:00 65 18 138/76 97 06/15/21 06:30 65 18 06/15/21 06:00 69 19 06/15/21 05:30 58 L 18 96 06/15/21 05:00 54 L 17 94 06/15/21 04:30 64 16 127/65 90 06/15/21 04:00 63 18 139/68 91 06/15/21 03:30 69 20 91 06/15/21 03:00 79 92 06/15/21 02:30 74 15 93 06/15/21 02:00 76 21 95 06/15/21 01:45 135 H 36 H 06/15/21 00:30 71 19 108/62 92 06/14/21 23:00 65 16 125/70 93 06/14/21 22:30 75 18 123/73 94 06/14/21 22:27 82 22 92 Laboratory Results 06/15/21 06/15/21 06/15/21 Range/Units 07:52 07:46 05:09 WBC (4.8-10.8) K/uL RBC (4.2-5.4) M/uL Hgb (12.0-16.0) g/dL Hct (37-47) % MCV (80-100) fL MCH (25-34) pg MCHC (32-36) g/dL RDW Std Deviation (36.4-46.3) fL RDW Coeff of Khloe (11.5-14.5) % Plt Count (130-400) K/uL MPV (7.4-10.4) fL Immature Gran % (Auto) % Neut % (Auto) % Lymph % (Auto) % [place] % (Auto) % Eos % (Auto) % Baso % (Auto) % Neut # (Auto) (1.4-6.5) K/uL Lymph # (Auto) (1.2-3.4) K/uL [place] # (Auto) (0.11-0.59) K/uL Eos # (Auto) (0-0.5) K/uL Baso # (Auto) (0-0.2) K/uL Immature Gran # (Auto) (0.00-0.02) K/uL Sodium (136-145) mmol/L Potassium (3.5-5.1) mmol/L Chloride (98-107) mmol/L Carbon Dioxide (21-32) mmol/L Anion Gap (3-11) BUN (7-18) mg/dl Creatinine (0.6-1.2) mg/dl Est Cr Clr Drug Dosing ml/min Est GFR ( Amer) ml/min Est GFR (Non-Af Amer) ml/min BUN/Creatinine Ratio (10-20) Glucose (70-99) mg/dl POC Glucose 182 H (70-99) mg/dl Estimat Average Glucose 166 mg/dl Hemoglobin A1c 7.4 H (4.5-5.6) % Calcium (8.5-10.1) mg/dl Magnesium (1.8-2.4) mg/dl Total Bilirubin (0.2-1) mg/dl Direct Bilirubin (0-0.2) mg/dl AST (15-37) U/L ALT (12-78) U/L Alkaline Phosphatase (45-117) U/L Total Protein (6.4-8.2) gm/dl Albumin (3.4-5.0) gm/dl Globulin (2.5-4.0) gm/dl Albumin/Globulin Ratio (0.9-2) Lipase (73-393) U/L Urine Color Urine Appearance (Clear) Urine pH (4.5-7.5) Ur Specific [place] (1.000-1.030) Urine Protein (Negative) Urine Glucose (UA) (Negative) Urine Ketones (Negative) Urine Blood (Negative) Urine Nitrite (Negative) Urine Bilirubin (Negative) Urine Urobilinogen (Negative) Ur Leukocyte Esterase (Negative) Urine WBC (Auto) (0-5) /hpf Urine RBC (Auto) (0-4) /hpf U Hyaline Cast (Auto) (0-5) /lpf U Epithel Cells (Auto) (0-5) /lpf Urine Bacteria (Auto) (Negative) COVID-19 Eval Order SARS-CoV-2 (PCR) (Negative) CMV IgM Ab CMV IgG Ab/TORCH EBV Capsid Ag IgG Ab EBV Capsid Ag IgM Ab EBV Nuclear Antigen Ab EBV Antibody Interp Hepatitis A IgM Ab Hep Bs Antigen (Neg) Hep B Core IgM Ab Hepatitis C Antibody (Neg) Herpes Virus Source Pending HSV I DNA PCR Pending HSV II DNA PCR Pending Monoscreen (Negative) 06/15/21 06/15/21 06/15/21 Range/Units 05:09 05:09 01:21 WBC 6.54 (4.8-10.8) K/uL RBC 4.11 L (4.2-5.4) M/uL Hgb 12.1 (12.0-16.0) g/dL Hct 36.3 L (37-47) % MCV 88.3 (80-100) fL MCH 29.4 (25-34) pg MCHC 33.3 (32-36) g/dL RDW Std Deviation 46.3 (36.4-46.3) fL RDW Coeff of Khloe 14.2 (11.5-14.5) % Plt Count 268 (130-400) K/uL MPV 10.3 (7.4-10.4) fL Immature Gran % (Auto) 0.5 % Neut % (Auto) 87.8 % Lymph % (Auto) 10.4 % [place] % (Auto) 1.1 % Eos % (Auto) 0.0 % Baso % (Auto) 0.2 % Neut # (Auto) 5.75 (1.4-6.5) K/uL Lymph # (Auto) 0.68 L (1.2-3.4) K/uL [place] # (Auto) 0.07 L (0.11-0.59) K/uL Eos # (Auto) 0.00 (0-0.5) K/uL Baso # (Auto) 0.01 (0-0.2) K/uL Immature Gran # (Auto) 0.03 H (0.00-0.02) K/uL Sodium 135 L (136-145) mmol/L Potassium 5.6 H D (3.5-5.1) mmol/L Chloride 109 H (98-107) mmol/L Carbon Dioxide 23 (21-32) mmol/L Anion Gap 3.0 (3-11) BUN 24 H (7-18) mg/dl Creatinine 1.77 H D (0.6-1.2) mg/dl Est Cr Clr Drug Dosing 49.3 ml/min Est GFR ( Amer) 36.8 ml/min Est GFR (Non-Af Amer) 31.8 ml/min BUN/Creatinine Ratio 13.5 (10-20) Glucose 217 H (70-99) mg/dl POC Glucose (70-99) mg/dl Estimat Average Glucose mg/dl Hemoglobin A1c (4.5-5.6) % Calcium 8.2 L (8.5-10.1) mg/dl Magnesium 1.9 (1.8-2.4) mg/dl Total Bilirubin 0.9 D (0.2-1) mg/dl Direct Bilirubin 0.6 H (0-0.2) mg/dl AST 156 H (15-37) U/L ALT 319 H (12-78) U/L Alkaline Phosphatase 355 H (45-117) U/L Total Protein 7.4 (6.4-8.2) gm/dl Albumin 3.2 L (3.4-5.0) gm/dl Globulin (2.5-4.0) gm/dl Albumin/Globulin Ratio (0.9-2) Lipase (73-393) U/L Urine Color Urine Appearance (Clear) Urine pH (4.5-7.5) Ur Specific [place] (1.000-1.030) Urine Protein (Negative) Urine Glucose (UA) (Negative) Urine Ketones (Negative) Urine Blood (Negative) Urine Nitrite (Negative) Urine Bilirubin (Negative) Urine Urobilinogen (Negative) Ur Leukocyte Esterase (Negative) Urine WBC (Auto) (0-5) /hpf Urine RBC (Auto) (0-4) /hpf U Hyaline Cast (Auto) (0-5) /lpf U Epithel Cells (Auto) (0-5) /lpf Urine Bacteria (Auto) (Negative) COVID-19 Eval Order SARS-CoV-2 (PCR) NEGATIVE (Negative) CMV IgM Ab CMV IgG Ab/TORCH EBV Capsid Ag IgG Ab EBV Capsid Ag IgM Ab EBV Nuclear Antigen Ab EBV Antibody Interp Hepatitis A IgM Ab Hep Bs Antigen (Neg) Hep B Core IgM Ab Hepatitis C Antibody (Neg) Herpes Virus Source HSV I DNA PCR HSV II DNA PCR Monoscreen (Negative) 06/15/21 06/14/21 06/14/21 Range/Units 01:21 23:39 23:39 WBC (4.8-10.8) K/uL RBC (4.2-5.4) M/uL Hgb (12.0-16.0) g/dL Hct (37-47) % MCV (80-100) fL MCH (25-34) pg MCHC (32-36) g/dL RDW Std Deviation (36.4-46.3) fL RDW Coeff of [place]hloe (11.5-14.5) % Plt Count (130-400) K/uL MPV (7.4-10.4) fL Immature Gran % (Auto) % Neut % (Auto) % Lymph % (Auto) % [place] % (Auto) % Eos % (Auto) % Baso % (Auto) % Neut # (Auto) (1.4-6.5) K/uL Lymph # (Auto) (1.2-3.4) K/uL [place] # (Auto) (0.11-0.59) K/uL Eos # (Auto) (0-0.5) K/uL Baso # (Auto) (0-0.2) K/uL Immature Gran # (Auto) (0.00-0.02) K/uL Sodium (136-145) mmol/L Potassium (3.5-5.1) mmol/L Chloride (98-107) mmol/L Carbon Dioxide (21-32) mmol/L Anion Gap (3-11) BUN (7-18) mg/dl Creatinine (0.6-1.2) mg/dl Est Cr Clr Drug Dosing ml/min Est GFR ( Amer) ml/min Est GFR (Non-Af Amer) ml/min BUN/Creatinine Ratio (10-20) Glucose (70-99) mg/dl POC Glucose (70-99) mg/dl Estimat Average Glucose mg/dl Hemoglobin A1c (4.5-5.6) % Calcium (8.5-10.1) mg/dl Magnesium (1.8-2.4) mg/dl Total Bilirubin (0.2-1) mg/dl Direct Bilirubin (0-0.2) mg/dl AST (15-37) U/L ALT (12-78) U/L Alkaline Phosphatase (45-117) U/L Total Protein (6.4-8.2) gm/dl Albumin (3.4-5.0) gm/dl Globulin (2.5-4.0) gm/dl Albumin/Globulin Ratio (0.9-2) Lipase (73-393) U/L Urine Color Urine Appearance (Clear) Urine pH (4.5-7.5) Ur Specific [place] (1.000-1.030) Urine Protein (Negative) Urine Glucose (UA) (Negative) Urine Ketones (Negative) Urine Blood (Negative) Urine Nitrite (Negative) Urine Bilirubin (Negative) Urine Urobilinogen (Negative) Ur Leukocyte Esterase (Negative) Urine WBC (Auto) (0-5) /hpf Urine RBC (Auto) (0-4) /hpf U Hyaline Cast (Auto) (0-5) /lpf U Epithel Cells (Auto) (0-5) /lpf Urine Bacteria (Auto) (Negative) COVID-19 Eval Order Covid[facility] at [facility] SARS-CoV-2 (PCR) (Negative) CMV IgM Ab Pending CMV IgG Ab/TORCH Pending EBV Capsid Ag IgG Ab Pending EBV Capsid Ag IgM Ab Pending EBV Nuclear Antigen Ab Pending EBV Antibody Interp Pending Hepatitis A IgM Ab Hep Bs Antigen (Neg) Hep B Core IgM Ab Hepatitis C Antibody (Neg) Herpes Virus Source HSV I DNA PCR HSV II DNA PCR Monoscreen (Negative) 06/14/21 06/14/21 06/14/21 Range/Units 23:39 23:39 22:15 WBC (4.8-10.8) K/uL RBC (4.2-5.4) M/uL Hgb (12.0-16.0) g/dL Hct (37-47) % MCV (80-100) fL MCH (25-34) pg MCHC (32-36) g/dL RDW Std Deviation (36.4-46.3) fL RDW Coeff of Khloe (11.5-14.5) % Plt Count (130-400) K/uL MPV (7.4-10.4) fL Immature Gran % (Auto) % Neut % (Auto) % Lymph % (Auto) % [place] % (Auto) % Eos % (Auto) % Baso % (Auto) % Neut # (Auto) (1.4-6.5) K/uL Lymph # (Auto) (1.2-3.4) K/uL [place] # (Auto) (0.11-0.59) K/uL Eos # (Auto) (0-0.5) K/uL Baso # (Auto) (0-0.2) K/uL Immature Gran # (Auto) (0.00-0.02) K/uL Sodium (136-145) mmol/L Potassium (3.5-5.1) mmol/L Chloride (98-107) mmol/L Carbon Dioxide (21-32) mmol/L Anion Gap (3-11) BUN (7-18) mg/dl Creatinine (0.6-1.2) mg/dl Est Cr Clr Drug Dosing ml/min Est GFR ( Amer) ml/min Est GFR (Non-Af Amer) ml/min BUN/Creatinine Ratio (10-20) Glucose (70-99) mg/dl POC Glucose (70-99) mg/dl Estimat Average Glucose mg/dl Hemoglobin A1c (4.5-5.6) % Calcium (8.5-10.1) mg/dl Magnesium (1.8-2.4) mg/dl Total Bilirubin (0.2-1) mg/dl Direct Bilirubin (0-0.2) mg/dl AST (15-37) U/L ALT (12-78) U/L Alkaline Phosphatase (45-117) U/L Total Protein (6.4-8.2) gm/dl Albumin (3.4-5.0) gm/dl Globulin (2.5-4.0) gm/dl Albumin/Globulin Ratio (0.9-2) Lipase (73-393) U/L Urine Color Dark Yellow Urine Appearance Clear (Clear) Urine pH 6.0 (4.5-7.5) Ur Specific [place] 1.018 (1.000-1.030) Urine Protein 1+ H (Negative) Urine Glucose (UA) Negative (Negative) Urine Ketones Negative (Negative) Urine Blood Negative (Negative) Urine Nitrite Negative (Negative) Urine Bilirubin 1+ H (Negative) Urine Urobilinogen Negative (Negative) Ur Leukocyte Esterase Trace H (Negative) Urine WBC (Auto) 1-5 (0-5) /hpf Urine RBC (Auto) 0-4 (0-4) /hpf U Hyaline Cast (Auto) 1-5 (0-5) /lpf U Epithel Cells (Auto) 10-20 H (0-5) /lpf Urine Bacteria (Auto) Negative (Negative) COVID-19 Eval Order SARS-CoV-2 (PCR) (Negative) CMV IgM Ab CMV IgG Ab/TORCH EBV Capsid Ag IgG Ab EBV Capsid Ag IgM Ab EBV Nuclear Antigen Ab EBV Antibody Interp Hepatitis A IgM Ab Hep Bs Antigen Neg (Neg) Hep B Core IgM Ab Hepatitis C Antibody Neg (Neg) Herpes Virus Source HSV I DNA PCR HSV II DNA PCR Monoscreen Negative (Negative) 06/14/21 06/14/21 06/14/21 Range/Units 22:15 22:15 07:46 WBC 7.03 (4.8-10.8) K/uL RBC 4.35 (4.2-5.4) M/uL Hgb 13.0 (12.0-16.0) g/dL Hct 38.5 (37-47) % MCV 88.5 (80-100) fL MCH 29.9 (25-34) pg MCHC 33.8 (32-36) g/dL RDW Std Deviation 46.0 (36.4-46.3) fL RDW Coeff of Khloe 14.1 (11.5-14.5) % Plt Count 298 (130-400) K/uL MPV 10.6 H (7.4-10.4) fL Immature Gran % (Auto) 0.1 % Neut % (Auto) 71.8 % Lymph % (Auto) 19.6 % [place] % (Auto) 6.8 % Eos % (Auto) 1.6 % Baso % (Auto) 0.1 % Neut # (Auto) 5.04 (1.4-6.5) K/uL Lymph # (Auto) 1.38 (1.2-3.4) K/uL [place] # (Auto) 0.48 (0.11-0.59) K/uL Eos # (Auto) 0.11 (0-0.5) K/uL Baso # (Auto) 0.01 (0-0.2) K/uL Immature Gran # (Auto) 0.01 (0.00-0.02) K/uL Sodium 138 (136-145) mmol/L Potassium 4.3 (3.5-5.1) mmol/L Chloride 106 (98-107) mmol/L Carbon Dioxide 27 (21-32) mmol/L Anion Gap 5.0 (3-11) BUN 29 H (7-18) mg/dl Creatinine 2.35 H (0.6-1.2) mg/dl Est Cr Clr Drug Dosing 37.1 ml/min Est GFR ( Amer) 26.1 ml/min Est GFR (Non-Af Amer) 22.6 ml/min BUN/Creatinine Ratio 12.3 (10-20) Glucose 137 H (70-99) mg/dl POC Glucose (70-99) mg/dl Estimat Average Glucose mg/dl Hemoglobin A1c (4.5-5.6) % Calcium 9.1 (8.5-10.1) mg/dl Magnesium (1.8-2.4) mg/dl Total Bilirubin 1.4 H (0.2-1) mg/dl Direct Bilirubin (0-0.2) mg/dl AST 189 H (15-37) U/L ALT 358 H (12-78) U/L Alkaline Phosphatase 378 H (45-117) U/L Total Protein 8.1 (6.4-8.2) gm/dl Albumin 3.5 (3.4-5.0) gm/dl Globulin 4.6 H (2.5-4.0) gm/dl Albumin/Globulin Ratio 0.8 L (0.9-2) Lipase 380 (73-393) U/L Urine Color Urine Appearance (Clear) Urine pH (4.5-7.5) Ur Specific [place] (1.000-1.030) Urine Protein (Negative) Urine Glucose (UA) (Negative) Urine Ketones (Negative) Urine Blood (Negative) Urine Nitrite (Negative) Urine Bilirubin (Negative) Urine Urobilinogen (Negative) Ur Leukocyte Esterase (Negative) Urine WBC (Auto) (0-5) /hpf Urine RBC (Auto) (0-4) /hpf U Hyaline Cast (Auto) (0-5) /lpf U Epithel Cells (Auto) (0-5) /lpf Urine Bacteria (Auto) (Negative) COVID-19 Eval Order SARS-CoV-2 (PCR) (Negative) CMV IgM Ab CMV IgG Ab/TORCH EBV Capsid Ag IgG Ab EBV Capsid Ag IgM Ab EBV Nuclear Antigen Ab EBV Antibody Interp Hepatitis A IgM Ab Pending Hep Bs Antigen (Neg) Hep B Core IgM Ab Pending Hepatitis C Antibody (Neg) Herpes Virus Source HSV I DNA PCR HSV II DNA PCR Monoscreen (Negative)
[2021-06-15] MEDS ORDERED: methylPREDNISolone 125 MG/2 ML VIAL IV SCH (09:00)
--- NOTE | 2021-06-15 09:01 | CT Scan Report ---
ABDOMEN AND PELVIS CT WITHOUT CONTRAST CT DOSE: 2214.30 mGy.cm HISTORY: Acute nausea and vomiting with elevated LFTs N/V. Elevated LFT/BUN/CR TECHNIQUE: Multiaxial CT images of the abdomen and pelvis were performed without contrast. A dose lo wering technique was utilized adhering to the principles of ALARA. COMPARISON STUDY: Abdominal ultrasound 06/15/2021, CTA chest 12/03/2015. FINDINGS: Imaged inferior cardiac chambers are unremarkable. Benign 3 mm solid nodule of the lateral segment right middle lobe stable from comparison. No pneumatosis or pneumoperitoneum. Unremarkable sp mendez, mildly atrophic pancreas and adrenal glands. Cholecystectomy. Hepatic steatosis. Unremarkable k idneys, urinary bladder, uterus and adnexa. Atherosclerosis of the aorta without aneurysm. No adenopa thy. No bowel obstruction or bowel wall thickening. A small duodenal diverticulum is noted. Colonic divert iculosis without acute diverticulitis. No ascites or mesenteric inflammation. Normal appendix. Unrema rkable soft tissues. No acute fracture. Degenerative changes of the spine, pelvis and hips. IMPRESSION: 1. No bowel obstruction or bowel wall thickening. Normal appendix. 2. Colonic diverticulosis. 3. Hepatic steatosis. ACT 112: Negative or not required by law. The above report was generated using voice recognition software. It may contain grammatical, syntax o r spelling errors. Electronically signed by: Erik Wahl M.D. 06/15/2021 9:00 AM
[2021-06-15] MEDS: CETIRIZINE HCL 10 MG TABLET PO SCH (09:19)
--- NOTE | 2021-06-15 11:08 | Anesthesiology Consultation ---
Date of Service June 15, 2021 Assessment & Plan (1) Encounter for pre-operative examination: Chart Review Chart Review: Acceptable Risk for Surgery and Patient NOT seen in Pre Admission Testing Recommend EKG prior to planned procedure. Consults Requested none History Surgery Operation Date: 06/15/21 09:35 Proposed Procedures p Endoscopic Ultrasonography Upper - Margaux Antunez MD Height/Weight Height: 5 ft 5 in Weight: 131.8 kg Allergies Allergy/AdvReac Type Severity Reaction Status Date / Time morphine AdvReac Unknown Neuro Verified 06/14/21 22:21 changes-becomes angry Medications Home Medications Medication Instructions Recorded Confirmed Last Taken atorvastatin 40 mg tablet 40 mg PO HS 07/06/18 06/14/21 07/09/18 bupropion HCl 100 mg tablet,12 hr 100 mg PO QAM 07/06/18 06/14/21 06/26/18 sustained-release lisinopril 10 mg tablet 10 mg PO HS 07/06/18 06/14/21 06/13/21 metformin 500 mg tablet 1,000 mg PO BIDM 07/06/18 06/14/21 06/14/21 nystatin 100,000 unit/gram topical 1 applic TOPICAL BID PRN 07/06/18 06/14/21 07/07/18 powder omeprazole 40 mg capsule,delayed 40 mg PO QAM 07/06/18 06/14/21 06/14/21 release paroxetine HCl 30 mg tablet (Paxil) 60 mg PO HS 07/06/18 06/14/21 06/13/21 quetiapine 100 mg tablet (Seroquel) 200 mg PO HS 07/06/18 06/14/21 06/13/21 lorazepam 1 mg tablet 1 mg PO DAILY PRN 06/03/20 06/14/21 Unknown diclofenac sodium 50 mg 50 mg PO BID 06/14/21 06/14/21 Unknown tablet,delayed release famotidine 20 mg tablet 20 mg PO BID 06/14/21 06/14/21 Unknown semaglutide (Ozempic) 0.25 mg SUBCUT WK 06/14/21 06/14/21 06/12/21 Active Medications Generic Name Dose Route Start Last Admin Trade Name Freq PRN Reason Stop Dose Admin Bupropion HCl 100 mg 06/15/21 09:00 06/15/21 08:48 Bupropion Sr 100 Mg Tabcr PO 07/15/21 08:59 100 mg QAM SOTO Administration Cetirizine HCl 10 mg 06/15/21 09:00 06/15/21 09:19 Cetirizine Hcl 10 Mg Tablet PO 07/15/21 08:59 10 mg QAM SOTO Administration Enoxaparin Sodium 40 mg 06/15/21 09:00 06/15/21 08:47 Enoxaparin Inj 40 Mg/0.4 Ml Syr SQ 07/15/21 08:59 40 mg Q12H SOTO Administration Famotidine 20 mg 06/15/21 09:00 06/15/21 08:48 Famotidine 20 Mg Tab PO 07/15/21 08:59 20 mg BID SOTO Administration Sodium Chloride 1,000 mls @ 125 mls/hr 06/15/21 03:08 06/15/21 03:29 Nss 1000ml IV 07/15/21 03:07 125 mls/hr .Q8H SOTO Administration Methylprednisolone 60 mg/ 0.96 mls @ 1.5 mls/min 06/15/21 09:00 06/15/21 08:49 Syringe IV 07/15/21 08:59 1.5 mls/min DAILY SOTO Administration Insulin Aspart 0 units 06/15/21 07:30 06/15/21 08:50 Insulin Aspart 100 Units/Ml 3 Ml Pen SC 07/15/21 07:29 2 units ACHS SOTO Administration Pantoprazole Sodium 40 mg 06/15/21 09:00 06/15/21 08:49 Pantoprazole 40 Mg Tab PO 07/15/21 08:59 40 mg QAM SOTO Administration Triamcinolone Acetonide 1 appln 06/15/21 09:00 06/15/21 08:48 Triamcinolone Acet 0.5% Cr 15 Gm Tube EXT 07/15/21 08:59 1 appln BID SOTO Administration Past Medical History Medical History (Updated 06/15/21 @ 11:07 by Derick Garcia DO) Anxiety Bipolar disorder Chronic back pain Depression Diabetes mellitus, type 2 GERD (gastroesophageal reflux disease) Hyperlipidemia Hypertension Osteoarthritis Past Family History Family History Mother Family history of diabetes mellitus Past Surgical History Surgical History History of carpal tunnel release bilt hands History of cholecystectomy History of colonoscopy History of dilatation and curettage History of elbow surgery bilt ulnar nerve release History of left breast biopsy benign Social History Smoking Status: Current every day smoker tobacco type: cigarettes Smoking cigarettes per day: 12 a day Hx Alcohol Use: No Alcohol type: wine alcohol intake frequency: holidays/special occasions only Hx Substance Use: No substance use type: does not use Physical Exam Vital Signs Last Vital Signs Temp 97.9 F 06/14/21 20:34 Pulse 65 06/15/21 08:00 Resp 18 06/15/21 08:00 BP 138/76 06/15/21 08:00 Pulse Ox 97 06/15/21 08:00 Testing Laboratory Results 06/15/21 05:09 06/15/21 05:09 Hemoglobin A1c 7.4 % (4.5-5.6) H 06/15/21 05:09 Urine Color Dark Yellow 06/14/21 22:15 Urine Appearance Clear (Clear) 06/14/21 22:15 Urine pH 6.0 (4.5-7.5) 06/14/21 22:15 Ur Specific [place] 1.018 (1.000-1.030) 06/14/21 22:15 Urine Protein 1+ (Negative) H 06/14/21 22:15 Urine Glucose (UA) Negative (Negative) 06/14/21 22:15 Urine Ketones Negative (Negative) 06/14/21 22:15 Urine Nitrite Negative (Negative) 06/14/21 22:15 Ur Leukocyte Esterase Trace (Negative) H 06/14/21 22:15 Urine WBC (Auto) 1-5 /hpf (0-5) 06/14/21 22:15 Urine RBC (Auto) 0-4 /hpf (0-4) 06/14/21 22:15 U Hyaline Cast (Auto) 1-5 /lpf (0-5) 06/14/21 22:15 U Epithel Cells (Auto) 10-20 /lpf (0-5) H 06/14/21 22:15 Urine Bacteria (Auto) Negative (Negative) 06/14/21 22:15 06/15/21 07:52 POC Glucose 182 H
[2021-06-15] MEDS ORDERED: fentaNYL citrate 100 MCG/2 ML VIAL ONE (14:50)
[2021-06-15] MEDS ORDERED: PROPOFOL IV EMULSION 10 MG/ML 20 ML VIAL IV ONE (14:50)
[2021-06-15] MEDS ORDERED: MIDAZOLAM HCL 1 MG/ML 2ML VIAL ONE (14:50)
[2021-06-15] MEDS ORDERED: LIDOCAINE 2% 2 ML VIAL/AMP(20MG/ML) INFIL ONE (14:50)
[2021-06-15] MEDS ORDERED: SUCCINYLCHOLINE CHLORIDE 20 MG/ML 10 ML VIAL IV ONE (14:50)
--- NOTE | 2021-06-15 15:07 | History & Physical Bridge Note ---
Date of Service June 15, 2021 History & Physical Bridge Note I have examined the patient, reviewed the History & Physical and in the interval since the performance of the History & Physical I have noted the following changes of clinical significance: no changes noted
--- NOTE | 2021-06-15 15:55 | Operative Report ---
Post Operative Report Pre & Post Diagnosis Operation Date: 06/15/21 09:35 Pre-Op Diagnosis: Elevated Liver Function Tests Post-Op Diagnosis: Elevated Liver Function Tests I identified the patient and participated in the time-out.: Yes Procedure Operation Date: 06/15/21 09:35 Actual Procedures p Upper Gastrointestinal Endoscopy,Upper Endoscopic Ultrasonography(Not Applicable) - Margaux Antunez MD Surgeon Margaux Antunez MD Compliance Spec None Estimated Blood Loss 0 Findings See Below (Normal CBD) Specimens None Description of Procedure EUS I attest to the content of the Intraoperative Record and any orders documented therein. Any exceptions are noted below.
--- NOTE | 2021-06-15 16:20 | GI REPORT ---
Patient Name: Christelle Packer Procedure Date: 06/15/2021 3:23 PM Date of : 1965 Admit Type: Inpatient Age: 55 Gender: Female Attending MD: Margaux Antunez MD Procedure: Upper GI endoscopy Providers: Margaux Antunez MD Referring MD: Marcus Antonio Indications: Nausea Medicines: General Anesthesia Complications: No immediate complications. Estimated Blood Loss: Estimated blood loss: none. Procedure: Pre-Anesthesia Assessment: - Prior to the procedure, a History and Physical was performed, and patient medications, allergies and sensitivities were reviewed. The patient's tolerance of previous anesthesia was reviewed. - The risks and benefits of the procedure and the sedation options and risks were discussed with the patient. All questions were answered and informed consent was obtained. - Patient identification and proposed procedure were verified prior to the procedure by the physician and the nurse. The procedure was verified in the procedure room. - Pre-procedure physical examination revealed no contraindications to sedation. After obtaining informed consent, the endoscope was passed under direct vision. Throughout the procedure, the patient's blood pressure, pulse, and oxygen saturations were monitored continuously. The Endoscope was introduced through the mouth, and advanced to the second part of duodenum. The upper GI endoscopy was accomplished without difficulty. The patient tolerated the procedure well. Findings: The examined esophagus was normal. The entire examined stomach was normal. The duodenal bulb and second portion of the duodenum were normal. Impression: - Normal esophagus. - Normal stomach. - Normal duodenal bulb and second portion of the duodenum. - No specimens collected. Recommendation: - Perform an upper endoscopic ultrasound (UEUS) today. Margaux Antunez MD 06/15/2021 4:20:11 PM This report has been signed electronically. Note Initiated On: 06/15/2021 3:23 PM Number of Addenda: 0 I attest to the content of the Intraoperative Record and orders documented therein, exceptions below {[id number]}
--- NOTE | 2021-06-15 16:25 | GI REPORT ---
Patient Name: Christelle Packer Procedure Date: 06/15/2021 3:44 PM Date of : 1965 Admit Type: Inpatient Age: 55 Gender: Female Attending MD: Margaux Antunez MD Procedure: Upper EUS Providers: Margaux Antunez MD Referring MD: Marcus Antonio Indications: Elevated liver enzymes Medicines: General Anesthesia Complications: No immediate complications. Estimated Blood Loss: Estimated blood loss: none. Procedure: Pre-Anesthesia Assessment: - Prior to the procedure, a History and Physical was performed, and patient medications, allergies and sensitivities were reviewed. The patient's tolerance of previous anesthesia was reviewed. - The risks and benefits of the procedure and the sedation options and risks were discussed with the patient. All questions were answered and informed consent was obtained. - Patient identification and proposed procedure were verified prior to the procedure by the physician and the nurse. The procedure was verified in the procedure room. - Pre-procedure physical examination revealed no contraindications to sedation. After obtaining informed consent, the endoscope was passed under direct vision. Throughout the procedure, the patient's blood pressure, pulse, and oxygen saturations were monitored continuously. The Endosonoscope was introduced through the mouth, and advanced to the second part of duodenum. The upper EUS was accomplished without difficulty. The patient tolerated the procedure well. Findings: ENDOSONOGRAPHIC FINDING: : There was no sign of significant endosonographic abnormality in the ampulla. No masses were identified. There was no sign of significant endosonographic abnormality in the common bile duct. The maximum diameter of the duct was 5 mm. No stones and no biliary sludge were identified. Evidence of a previous cholecystectomy was identified endosonographically. There was abnormal echogenicity in the visualized portion of the liver. This area was hyperechoic. There was no sign of significant endosonographic abnormality in the entire pancreas. The pancreatic duct measured up to 2 mm in diameter. There was no sign of significant endosonographic abnormality in the visualized portion of the left adrenal gland. There was no sign of significant endosonographic abnormality involving the celiac trunk. Impression: - There was no sign of significant pathology in the ampulla. - There was no sign of significant pathology in the common bile duct. No stones. - Evidence of a cholecystectomy. - There was abnormal echogenicity in the visualized portion of the liver suggestive of fatty infiltration. - There was no sign of significant pathology in the entire pancreas. - Endosonographic images of the left adrenal gland were unremarkable. - The celiac trunk was endosonographically normal. Recommendation: - [facility]. Margaux Antunez MD 06/15/2021 4:24:27 PM This report has been signed electronically. Note Initiated On: 06/15/2021 3:44 PM Number of Addenda: 0 I attest to the content of the Intraoperative Record and orders documented therein, exceptions below {[id number]}
--- NOTE | 2021-06-15 16:36 | Anesthesiology Progress Note ---
Date of Service June 15, 2021 Anesthesia Post Procedure Vital Signs Vital Signs: Temp Pulse Pulse Pulse Resp BP BP 06/15/21 16:30 67 15 141/85 H 06/15/21 16:20 76 12 121/41 L 06/15/21 16:10 36.4 C L 84 18 119/86 06/15/21 14:09 36.8 C 56 L 22 137/73 06/15/21 11:00 75 18 143/80 H 06/15/21 08:00 65 18 138/76 06/15/21 06:30 65 18 06/15/21 06:00 69 19 06/15/21 05:30 58 L 18 06/15/21 05:00 54 L 17 06/15/21 04:30 64 16 127/65 06/15/21 04:00 63 18 139/68 06/15/21 03:30 69 20 06/15/21 03:00 79 06/15/21 02:30 74 15 06/15/21 02:00 76 21 06/15/21 01:45 135 H 36 H 06/15/21 00:30 71 19 108/62 06/14/21 23:00 65 16 125/70 06/14/21 22:30 75 18 123/73 06/14/21 22:27 82 22 06/14/21 20:34 36.6 C 83 16 125/80 Pulse Ox 06/15/21 16:30 96 06/15/21 16:20 94 06/15/21 16:10 94 06/15/21 14:09 93 06/15/21 11:00 99 06/15/21 08:00 97 06/15/21 06:30 06/15/21 06:00 06/15/21 05:30 96 06/15/21 05:00 94 06/15/21 04:30 90 06/15/21 04:00 91 06/15/21 03:30 91 06/15/21 03:00 92 06/15/21 02:30 93 06/15/21 02:00 95 06/15/21 01:45 06/15/21 00:30 92 06/14/21 23:00 93 06/14/21 22:30 94 06/14/21 22:27 92 06/14/21 20:34 95 Transfer of Care Handoff Completed per policy Notes Mental Status: alert / awake / arousable and participated in evaluation Patient Amnestic to Procedure: Yes Nausea / Vomiting: adequately controlled Pain: adequately controlled Airway Patency, RR, SpO2: stable & adequate BP & HR: stable & adequate Hydration State: stable & adequate Anesthetic Complications: no major complications apparent and Pt Satisfied with anesthetic care
--- NOTE | 2021-06-15 16:52 | Gastroenterology Progress Note ---
Date of Service June 15, 2021 Assessment & Plan Admission and Anticipated Discharge Date Admission Date: June 15, 2021 Subjective EUS showed no choledocholithiasis. Recommend: Monitor LFTs. Recall GI if needed Results & Data ([facility]) Vital Signs (Past 12 Hours) Vital Signs Temp Pulse Pulse Pulse Resp BP Pulse Ox 06/15/21 16:40 36.5 C 66 13 134/79 94 06/15/21 16:30 67 15 141/85 H 96 06/15/21 16:20 76 12 121/41 L 94 06/15/21 16:10 36.4 C L 84 18 119/86 94 06/15/21 14:09 36.8 C 56 L 22 137/73 93 06/15/21 11:00 75 18 143/80 H 99 06/15/21 08:00 65 18 138/76 97 06/15/21 06:30 65 18 06/15/21 06:00 69 19 06/15/21 05:30 58 L 18 96 06/15/21 05:00 54 L 17 94
[2021-06-15] MEDS ORDERED: diphenhydrAMINE 50 MG/ML VIAL IV PRN (17:03)
--- NOTE | 2021-06-15 17:47 | Communication Note ---
Date of Service: June 15, 2021 seen resting in bed, sitting up generalized pruritus is improving no dyspnea, tongue or lip swelling no abdominal pain, nausea requesting regular diet no other symptoms VS noted General- oriented x 3, not in distress, speaks in sentences with no effort or accessory muscle use Face- (+) erythema of the right cheek Eyes- anicteric mild periorbital edema Neck- no JVD Lungs- clear breath sounds bilaterally, no rales/wheezes Heart- normal rate, regular rhythm; no murmurs Abdomen- normal bowel sounds, nondistended, soft, nontender Extremities- no pretibial edema, no calf tenderness Neuro- alert, oriented x 3; no gross focal neurologic deficits Skin- warm & dry (+) papular rash on the dorsal hand left, neck, areas of the left chest wall, upper abdomen, left long, left dorsal foot all labs reviewed POSSIBLE DRUG REACTION WITH MILD SYSTEMIC INVOLVEMENT CBC no eosinophilia, lymphocytosis d/c Gabapentin IV solumedrol 60mg daily Zyrtec PRN Benadryl IV Triamcinolone cream ACUTE RENAL FAILURE WITH HYPERK from above? repeat BMP pending given Kayexalate continue IV fluids Nephro consulted ELEVATED LFTS from above? EGD and EUS unremarkable except for fatty liver monitor LFTs plan of care discussed with patient in detail and at length all questions answered she is understanding, agreeable, comfortable with the plan of care Marcus Antonio MD
[2021-06-15] MEDS ORDERED: KETOROLAC TROMETHAMINE 15 MG/ML VIAL IV ONE (20:29)
[2021-06-15] MEDS ORDERED: QUEtiapine FUMARATE 200 MG TAB PO SCH (21:00)
[2021-06-15] MEDS ORDERED: ATORVASTATIN 40 MG TAB PO SCH (21:00)
[2021-06-15] MEDS ORDERED: PARoxetine HCL 20 MG TAB PO SCH (21:00)
[2021-06-16] MEDS: SODIUM CHLORIDE 0.9% 1000ML 1,000 ML IV SCH ×2 (03:25→10:51)
[2021-06-16 06:08] LABS: Basophils # (auto) 0.02 K/uL (0-0.2); Basophils % (auto) 0.2 %; Eosinophils # (auto) 0.04 K/uL (0-0.5); Eosinophils % (auto) 0.5 %; Hematocrit (blood only) 34.4 % (37-47); Hemoglobin 11.3 g/dL (12.0-16.0); Immature Granulocytes # (auto) 0.02 K/uL (0.00-0.02); Immature Granulocytes % (auto) 0.2 %; Lymphocytes # (auto) 1.85 K/uL (1.2-3.4); Lymphocytes % (auto) 20.9 %; Mean Corpuscular Hemoglobin 29.7 pg (25-34); Mean Corpuscular Hgb Conc 32.8 g/dL (32-36); Mean Corpuscular Volume 90.3 fL (80-100); Mean Platelet Volume 10.5 fL (7.4-10.4); Monocytes # (auto) 0.57 K/uL (0.11-0.59); Monocytes % (auto) 6.4 %; Neutrophils # (auto) 6.37 K/uL (1.4-6.5); Neutrophils % (auto) 71.8 %; Platelet Count 218 K/uL (130-400); RDW Coefficient of Variation 14.4 % (11.5-14.5); RDW Standard Deviation 47.5 fL (36.4-46.3); Red Blood Count 3.81 M/uL (4.2-5.4); White Blood Count 8.87 K/uL (4.8-10.8)
[2021-06-16 06:58] LABS: Albumin Level 2.7 gm/dl (3.4-5.0); BUN Creatinine Ratio 15.4 (10-20); Bilirubin Direct 0.3 mg/dl (0-0.2); Bilirubin,Total 0.4 mg/dl (0.2-1); Calcium 8.1 mg/dl (8.5-10.1); Creatinine Clr Calc Pharmacy 71.8 ml/min; Est GFR (African American) 55.5 ml/min; Est GFR (Non-African American) 47.9 ml/min; Potassium 4.1 mmol/L (3.5-5.1); Total Protein 6.4 gm/dl (6.4-8.2)
[2021-06-16] MEDS: ENOXAPARIN INJ 40 MG/0.4 ML SYR SQ SCH (07:34)
[2021-06-16] MEDS: buPROPion SR 100 MG TABCR PO SCH (07:35)
[2021-06-16] MEDS: FAMOTIDINE 20 MG TAB PO SCH (07:35)
[2021-06-16] MEDS: CETIRIZINE HCL 10 MG TABLET PO SCH (07:35)
[2021-06-16] MEDS: PANTOprazole 40 MG TAB PO SCH (07:35)
[2021-06-16] MEDS: TRIAMCINOLONE ACET 0.5% CR 15 GM TUBE EXT SCH (07:36)
[2021-06-16 08:30] LABS: Hepatitis A Antibody IgM NON-REACTIVE (NON-REACTIVE); Hepatitis B Core Antibody IgM NON-REACTIVE (NON-REACTIVE)
[2021-06-16] MEDS: INSULIN ASPART 100 UNITS/ML 3 ML PEN SC SCH ×2 (08:46→12:14)
[2021-06-16] MEDS: methylPREDNISolone 60 MG in SYRINGE 0 ML IV SCH (08:46)
[2021-06-16] MEDS ORDERED: COUGH DROP (SUGAR FREE) LOZ 24 LOZ/1 BOX BUCCAL PRN (10:31)
--- NOTE | 2021-06-16 15:07 | Hospitalist Progress Note ---
Date of Service June 16, 2021 Assessment & Plan (1) Drug reaction: Plan: ASSESSMENT AND PLAN: A 55-year-old female who presents with persistent pruritus, nausea and found to have acute kidney injury and elevated LFTs. 1. POSSIBLE DRUG REACTION WITH MILD SYSTEMIC INVOLVEMENT SECONDARY TO GABAPENTIN symptoms started after increasing dose of Gabapentin 100mg daily to TID CBC no eosinophilia, lymphocytosis which points against DRESS (drug reaction with eosinophilia and systemic symptoms) but did have elevation of crea and LFTs crea on admission 2.3 AST 189 ALT 358 AP 378 given Solumedrol 125mg at the ER, the 60mg IV while admitted (X 2 doses) Zyrtec, Triamcinolone cream and PRN Benadryl ordered generalized pruritus much better, rashes including facial rash resolving discharge on: Prednisone 60mg x 5 days, then 40mg x 5 days, then 30mg x 5 days, then 20mg x 5 days, then 10mg x 5 days, then stop (please re-evaluate and shorten taper course if needed) Zyrtec daily x 30 days PRN Vistaril for itching (benadryl causes nausea) Triamcinolone cream d/c Gabapentin please refer to Technology Recruiter 2. ELEVATED LFTS likely from #[address] scan are unremarkable. s/p EGD and EUS by Dr. Antunez: fatty liver otherwise unremarkable LFTS improving repeat LFTs on ff up with PCP 3. ACUTE RENAL FAILURE WITH HYPERK likely from #1 crea improved from 2.3 to 1.2 after IV fluids 4. Gastroesophageal reflux disease. Continue omeprazole. 5. Depression and bipolar I disorder . Continue paroxetine and Seroquel and bupropion. 6. Diabetes. resume usual medications BSGs 130-189 advised to check BSG daily, call PCP if > 200 7. Hyperlipidemia hold Statin for now 8. Hypertension. continue Lisinopril 9. Morbid obesity: Needs counseling. 10. tobacco abuse . needs counselling. On bupropion 11. Deep venous thrombosis prophylaxis: Lovenox. d/c home ff up with PCP in 1 week refer to Costing Analyst plan of care discussed with patient in detail and at length all questions answered she is understanding, agreeable, comfortable with the plan of care Marcus Antonio MD Admission and Anticipated Discharge Date Admission Date: June 15, 2021 Subjective ff up for drug reaction with possible systemic involvement, etc seen resting in bed, comfortable reading a book in good spirits states she feels much better overall reports itching has improved by 70 percent denies tongue/lip swelling no shortness of breath, wheezing no chest pain, dyspnea, palpitations, dizziness no abdominal pain, nausea/vomiting no problems with urination or BM no other symptoms states she is ready and would like to go home today Review of Systems Review of Systems: all noted and negative except for above Physical Exam Physical Exam: General- oriented x 3, not in distress, speaks in sentences with no effort or accessory muscle use face- erythema is very mild on the right cheek very minimal edema of the eyelids Eyes- anicteric Neck- no JVD Lungs- clear breath sounds bilaterally, no rales/wheezes Heart- normal rate, regular rhythm; no murmurs Abdomen- normal bowel sounds, nondistended, soft, nontender Extremities- no pretibial edema, no calf tenderness rashes previously mentioned also fading no new rashes Neuro- alert, oriented x 3; no gross focal neurologic deficits Skin- warm & dry Results & Data Results & Data ([facility]) Vital Signs (Past 12 Hours) Vital Signs Temp Pulse Pulse Resp BP BP Pulse Ox 06/16/21 11:11 36.7 C 62 16 123/83 91 06/16/21 08:00 65 06/16/21 07:16 36.7 C 77 20 125/73 93 all noted and reviewed including below
--- NOTE | 2021-06-16 15:25 | Discharge Summary ---
Date of Service June 16, 2021 Admission HPI Per Admitting Provider CHIEF COMPLAINT: Itchiness, nausea, rash. HISTORY OF PRESENT ILLNESS: This is a 55-year-old female with past medical history significant for chronic back pain, bipolar I disorder, depression, diabetes type 2, GERD, hypotension, morbid obesity, anxiety, tobacco use disorder, presents with ongoing itchiness from last Friday and she has some macular rash on the face. Today, she noticed possible swelling in the hands. She tried to use Benadryl, but over the last couple of days, she has lot of nausea and vomiting. She was not able to take anything p.o. and as she was not getting better, she came to the hospital. She states she was taking only the new medication was gabapentin. She is taking 1 daily for almost 1-2 months then recently it was increased to 3 times daily but when the itching started, she stopped the gabapentin, the itching was also on the palms. Denies any fevers. No cough, no chest pain, no shortness of breath, no headaches, blurred vision, no earache, no runny nose, has dry throat. No abdominal pain. Somewhat constipated. The urine looks yellow today. No swelling in the legs. Currently, hemodynamically stable but labs shows creatinine of 2.35, total bilirubin 1.4, AST, ALT, alkaline phosphatase are mildly elevated. Admission Exam (Per Admitting) Constitutional PHYSICAL EXAMINATION: GENERAL: The patient is morbidly obese, not in acute distress. VITAL SIGNS: Temperature 36.6, pulse 71, respiratory rate 19, blood pressure 109/62, oxygen 92% on room air. HEENT: Pupils equal, round and reactive to light. Oral mucosa moist. NECK: No JVD, no neck masses. CARDIOVASCULAR: S1 and S2 heard. Regular rate and rhythm. No murmur, no gallop. RESPIRATORY SYSTEM: Normal AP diameter. No accessory muscle use. No wheezing, no crackles. ABDOMEN: Soft, bowel sounds present, nontender, no distention. CENTRAL NERVOUS SYSTEM: Cranial nerves II-XII grossly intact, nonfocal. EXTREMITIES: No edema, no erythema. Discharge Data Consultations 06/15/21 01:30 ED Decision to Admit Stat 06/15/21 08:00 Consult Gastroenterology Routine 06/15/21 17:03 Consult Nephrology Routine Procedures Performed Operation Date: 06/15/21 09:35 Actual Procedures p Upper Gastrointestinal Endoscopy,Upper Endoscopic Ultrasonography(Not Applicable) - Margaux Antunez MD ABDOMEN AND PELVIS CT WITHOUT CONTRAST CT DOSE: 2214.30 mGy.cm HISTORY: Acute nausea and vomiting with elevated LFTs N/V. Elevated LFT/BUN/CR TECHNIQUE: Multiaxial CT images of the abdomen and pelvis were performed without contrast. A dose lowering technique was utilized adhering to the principles of ALARA. COMPARISON STUDY: Abdominal ultrasound 06/15/2021, CTA chest 12/03/2015. FINDINGS: Imaged inferior cardiac chambers are unremarkable. Benign 3 mm solid nodule of the lateral segment right middle lobe stable from comparison. No pneumatosis or pneumoperitoneum. Unremarkable spleen, mildly atrophic pancreas and adrenal glands. Cholecystectomy. Hepatic steatosis. Unremarkable kidneys, urinary bladder, uterus and adnexa. Atherosclerosis of the aorta without aneurysm. No adenopathy. No bowel obstruction or bowel wall thickening. A small duodenal diverticulum is noted. Colonic diverticulosis without acute diverticulitis. No ascites or mesenteric inflammation. Normal appendix. Unremarkable soft tissues. No acute fracture. Degenerative changes of the spine, pelvis and hips. IMPRESSION: 1. No bowel obstruction or bowel wall thickening. Normal appendix. 2. Colonic diverticulosis. 3. Hepatic steatosis. ACT 112: Negative or not required by law. US liver HISTORY: 55 years-old Female n/v. Elevated LFT's. No gallbladder acutely elevated LFTs COMPARISON: CT abdomen and pelvis of same day, right upper quadrant abdominal ultrasound 11/30/2011 TECHNIQUE: Multiple real-time sonographic images of the abdominal right upper quadrant were obtained assessing grayscale appearance and color flow FINDINGS: Hepatic steatosis. No hepatic mass lesion or marginal nodularity identified. Cholecystectomy. The imaged right kidney is unremarkable without hydronephrosis. The visualized pancreas appears within normal limits. The common bile duct is mildly dilated at 8 mm. IMPRESSION: 1. Cholecystectomy. 2. Mild dilation of the common bile duct is likely on a postsurgical basis. 3. Hepatic steatosis. ACT 112: Negative or not required by law. Hospital Course (1) Drug reaction: ASSESSMENT AND PLAN: A 55-year-old female who presents with persistent pruritus, nausea and found to have acute kidney injury and elevated LFTs. 1. POSSIBLE DRUG REACTION WITH MILD SYSTEMIC INVOLVEMENT SECONDARY TO GABAPENTIN symptoms started after increasing dose of Gabapentin 100mg daily to TID CBC no eosinophilia, lymphocytosis which points against DRESS (drug reaction with eosinophilia and systemic symptoms) but did have elevation of crea and LFTs crea on admission 2.3 AST 189 ALT 358 AP 378 given Solumedrol 125mg at the ER, the 60mg IV while admitted (X 2 doses) Zyrtec, Triamcinolone cream and PRN Benadryl ordered generalized pruritus much better, rashes including facial rash resolving discharge on: Prednisone 60mg x 5 days, then 40mg x 5 days, then 30mg x 5 days, then 20mg x 5 days, then 10mg x 5 days, then stop (please re-evaluate and shorten taper course if needed) Zyrtec daily x 30 days PRN Vistaril for itching (benadryl causes nausea) Triamcinolone cream d/c Gabapentin please refer to Secondary History Teacher 2. ELEVATED LFTS likely from #[address] scan are unremarkable. s/p EGD and EUS by Dr. Antunez: fatty liver otherwise unremarkable LFTS improving repeat LFTs on ff up with PCP 3. ACUTE RENAL FAILURE WITH HYPERK likely from #1 crea improved from 2.3 to 1.2 after IV fluids 4. Gastroesophageal reflux disease. Continue omeprazole. 5. Depression and bipolar I disorder . Continue paroxetine and Seroquel and bupropion. 6. Diabetes. resume usual medications BSGs 130-189 advised to check BSG daily, call PCP if > 200 7. Hyperlipidemia hold Statin for now 8. Hypertension. continue Lisinopril 9. Morbid obesity: Needs counseling. 10. tobacco abuse . needs counselling. On bupropion 11. Deep venous thrombosis prophylaxis: Lovenox. d/c home ff up with PCP in 1 week refer to Chief Of Police plan of care discussed with patient in detail and at length all questions answered she is understanding, agreeable, comfortable with the plan of care Marcus Antonio MD
--- NOTE | 2021-06-17 09:55 | Communication Note ---
Date of Service: June 17, 2021 On 06/16 I reviewed pt labs in preparation to do requested nephrology consultation; labs were improving; after discussion w/ Dr Antonio, nephrology consult was cancelled.
[2021-06-18 12:17] LABS: EBV Nuclear Ag Antibody >600.00 U/mL; EBV Virus Capsid Ag IgG Ab >750.00 U/mL
[2021-06-18 15:16] LABS: HSV Type 1 DNA Not Detected (Not Detected); HSV Type 1&2 DNA Source Whole Blood; HSV Type 2 DNA Not Detected (Not Detected)
--- NOTE | 2021-06-18 16:05 | Electrocardiogram Report ---
Test Reason : Blood Pressure : / mmHG Vent. Rate : 058 BPM Atrial Rate : 058 BPM P-R Int : 152 ms QRS Dur : 078 ms QT Int : 404 ms P-R-T Axes : 028 009 034 degrees QTc Int : 396 ms Sinus bradycardia with sinus arrhythmia Low voltage QRS Borderline ECG When compared with ECG of 04-DEC-2015 06:56, No significant change was found Confirmed by Rosendo Krishnamurthy ([id number]) on 06/18/2021 4:05:27 PM Referred By: REFERRED SELF Confirmed By:Rosendo Krishnamurthy
[2021-06-19 13:11] LABS: CMV IgM Antibody <30.00 AU/mL
== END 2021-06-16 15:59 | disposition home or self-care (01) | DRG 683 ==
LOC: ED 20:33 → EDINP 06-15 02:39 → SUATTDRO 06-15 02:39 → EDINP 06-15 13:55 → 2W 06-15 17:01
DX: K76.0 Fatty (change of) liver, not elsewhere classified; K21.9 Gastro-esophageal reflux disease without esophagitis; Z79.1 Long term (current) use of non-steroidal anti-inflammatories (NSAID); Z68.43 Body mass index [BMI] 50.0-59.9, adult; Z79.84 Long term (current) use of oral hypoglycemic drugs; E66.09 Other obesity due to excess calories; T42.6X5A Adverse effect of other antiepileptic and sedative-hypnotic drugs, initial encounter; I10 Essential (primary) hypertension; E87.5 Hyperkalemia; E78.5 Hyperlipidemia, unspecified; N17.9 Acute kidney failure, unspecified; Z20.822 Contact with and (suspected) exposure to COVID-19; E11.9 Type 2 diabetes mellitus without complications; R11.0 Nausea; F17.210 Nicotine dependence, cigarettes, uncomplicated; L27.0 Generalized skin eruption due to drugs and medicaments taken internally; Z88.5 Allergy status to narcotic agent; Z79.899 Other long term (current) drug therapy; F41.9 Anxiety disorder, unspecified; K59.00 Constipation, unspecified; R94.5 Abnormal results of liver function studies; F31.9 Bipolar disorder, unspecified